=== PATIENT | female | born 1955 | race Caucasian/White ===

== ENCOUNTER 2019-06-29 09:38 | Outpatient (CLI) | payer MEDICARE, MEDICAID, SELFPAY ==
--- NOTE | 2019-06-29 09:46 | CT_ITS ---
WS: [id number] CT CERVICAL SPINE TECHNIQUE: Noncontrast CT of the cervical spine with coronal and sagittal reformatted images. CLINICAL INFORMATION: PSEUDARTHROSIS FOLLOWING SPINAL FUSION COMPARISON: [id number] DLP: 1228.[address] scans at [facility] use at least one of these dose optimization techniques: automat ed exposure control; mA and/or kV adjustment per patient size (includes targeted exams where dose is matched to clinical indication); or iterative reconstruction. FINDINGS: Straightening of the normal cervical lordosis. Prior postoperative changes anterior cervical fusion w ith interbody fusion C4-T1. Mild subsidence at the C4-C5 C5-C6 and C7-T1 fusion grafts. No evidence o f bony bridging beyond the confines of the grafts. Solid appearing interbody graft C6-7. Fusion is unchanged in appearance since December 18, 2018. Screw fragment C5 vertebral body. Slight lucency along the C6 anterior fixation screws. Otherwise no eviden ce of loosening. C2-C3: Disc osteophyte complex. Mild central canal stenosis. Mild bilateral bony foraminal narrowing. C3-C4: Slight retrolisthesis. Disc osteophyte complex with endplate ridging. Mild central canal steno sis. Moderate bilateral bony foraminal narrowing with mild facet arthropathy. C4-C5: Anterior interbody cervical fusion. Moderate bilateral bony foraminal narrowing. Moderate left facet arthropathy. C5-C6: Disc osteophyte complex with mild central canal stenosis. Tiny central protrusion. Moderate ri ght and mild left bony foraminal narrowing. Moderate facet arthropathy. C6-C7: Disc osteophyte complex with endplate ridging. Mild central canal stenosis. Moderate to severe right and mild left bony foraminal narrowing. Mild facet arthropathy. C7-T1: Disc osteophyte complex with mild central canal stenosis. Moderate to severe bilateral bony fo raminal narrowing worse in the left. Visualized posterior nasopharynx: Normal. Prevertebral soft tissues: Normal. CT/CT cervical spin wo con* [id number] IMPRESSION: 1. Prior postoperative changes anterior interbody cervical fusion C4-T1. Hardw are appears unchanged since 2018. 2. Solid appearing interbody fusion at C6-C7. Incomplete interbody fusion C4-C 5 C5-C6 and C7-T1 with subsidence is unchanged in appearance. 3. Abandoned screw fragment C5 vertebral body. 4. Disc osteophyte complexes worse at C2-C3 and C3-C4 with mild central canal stenosis. 5. Multilevel bony foraminal narrowing worse at left C4-C5, right C6-7, and bi lateral C7-T1.
== END 2019-06-29 09:39 | disposition home or self-care (01) ==
LOC: RADWPI 09:45
PROVIDERS: Family Provider Family Medicine; PCP Family Medicine; Visit Provider Specialist
DX: M96.0 Pseudarthrosis after fusion or arthrodesis (principal); Z98.1 Arthrodesis status; M48.03 Spinal stenosis, cervicothoracic region
CPT/HCPCS: 72125

== ENCOUNTER → 2023-09-12 15:43 | Outpatient (BNVA) | payer MEDICARE, MEDICAID, SELFPAY | PROVIDERS: Family Provider Family Medicine; PCP Family Medicine; Visit Provider Podiatrist Foot & Ankle Surgery | DX: M21.70 Unequal limb length (acquired), unspecified site; M19.071 Primary osteoarthritis, right ankle and foot; M19.072 Primary osteoarthritis, left ankle and foot; M20.12 Hallux valgus (acquired), left foot; M20.42 Other hammer toe(s) (acquired), left foot; G62.9 Polyneuropathy, unspecified | CPT/HCPCS: 73630; 77073; 99204 ==

== ENCOUNTER → 2023-12-12 11:01 | Outpatient (BNVA) | payer MEDICARE, MEDICAID, SELFPAY | PROVIDERS: Family Provider Family Medicine; PCP Family Medicine; Visit Provider Podiatrist Foot & Ankle Surgery | DX: G62.9 Polyneuropathy, unspecified (principal); M21.70 Unequal limb length (acquired), unspecified site; M20.42 Other hammer toe(s) (acquired), left foot; M19.072 Primary osteoarthritis, left ankle and foot; M20.12 Hallux valgus (acquired), left foot | CPT/HCPCS: 99213 ==

== ENCOUNTER 2024-05-26 11:41 | Emergency (ER) | payer MEDICARE, MEDICAID, SELFPAY ==
[2024-05-26] VITALS (9 sets, daily range): BP systolic 146–183; BP diastolic 60–116; PULSE 62–81; RESP 16; TEMP 36.6; O2SAT 90–100; BMI 23.9
--- NOTE | 2024-05-26 13:34 | CTR_ITS ---
PROCEDURE INFORMATION: Exam: CT Head Without Contrast Exam date and time: 05/26/2024 1:48 PM Age: 69 years old Clinical indication: Injury or trauma; Fall; Blunt trauma (contusions or hematomas); Without loss of consciousness; Additional info: Fall, pain, numbness, weakness TECHNIQUE: Imaging protocol: Computed tomography of the head without contrast. Radiation optimization: All CT scans at this facility use at least one of these dose optimization techniques: automated exposure control; mA and/or kV adjustment per patient size (includes targeted exams where dose is matched to clinical indication); or iterative reconstruction. COMPARISON: CT cervical spin wo con* [id number] 05/26/2024 1:48 PM RADIATION DOSE METRICS: Total DLP (mGy-cm): 1098.9 FINDINGS: Brain: No acute infarct, hemorrhage, mass, or mass effect. Mild chronic white matter microvascular ischemic change. Cerebral ventricles: Normal ventricles. No appreciable extra-axial fluid. Paranasal sinuses: Mucosal thickening in the paranasal sinuses. Mastoid air cells: Clear. Orbital cavities: Orbits are unremarkable. Sella is unremarkable. Bones: Unremarkable. Soft tissues: Unremarkable. CT/CT head wo con* [id number] IMPRESSION: No acute intracranial abnormality.
--- NOTE | 2024-05-26 13:34 | CTR_ITS ---
PROCEDURE INFORMATION: Exam: CT Cervical Spine Without Contrast Exam date and time: 05/26/2024 1:48 PM Age: 69 years old Clinical indication: Neck pain; Additional info: Pain, numbness, weakness TECHNIQUE: Imaging protocol: Computed tomography of the cervical spine without contrast. Radiation optimization: All CT scans at this facility use at least one of these dose optimization techniques: automated exposure control; mA and/or kV adjustment per patient size (includes targeted exams where dose is matched to clinical indication); or iterative reconstruction. COMPARISON: CT cervical spin wo con* [id number] 06/29/2019 9:55 AM RADIATION DOSE METRICS: Total DLP (mGy-cm): 1054.9 FINDINGS: Bones: Mild straightening of cervical lordosis may be due to pain or positioning. No acute fracture. Moderate multilevel degenerative change, with associated grade 1 retrolisthesis at C2-C3. Cervical ACDF spanning C3 -7. New/more prominent fracture of the right C7 vertebral body screw. Lungs: Lung apices are normal. Soft tissues: No soft tissue abnormality. CT/CT cervical spin wo con* [id number] IMPRESSION: 1. Mild straightening of cervical lordosis may be due to pain or positioning. No acute fracture. 2. Cervical ACDF spanning C3 -7. New/more prominent fracture of the right C7 vertebral body screw. Otherwise, no evidence of hardware loosening or fracture.
--- NOTE | 2024-05-26 13:35 | XRR_ITS ---
PROCEDURE INFORMATION: Exam: XR Right Hip Exam date and time: 05/26/2024 1:37 PM Age: 69 years old Clinical indication: Hip pain; Right hip; Patient HX: RT hip/knee pain post fall TECHNIQUE: Imaging protocol: Radiologic exam of the right hip. Views: 1 view hip with pelvis when performed. COMPARISON: No relevant prior studies available. FINDINGS: Bones/joints: Mild osteoarthritis of the right hip without evidence of fracture or subluxation. Pelvic ring is grossly intact. Sacrum and coccyx are partially obscured by bowel gas/stool. Severe spondylosis of the lumbar spine with dextroscoliosis. Moderate-large stool burden. Soft tissues: No gross soft tissue abnormality. XR/XR hip RT 2-3V wo/w pel* [id number] IMPRESSION: 1. No evidence of fracture or subluxation of the right hip.
--- NOTE | 2024-05-26 13:36 | XRR_ITS ---
PROCEDURE INFORMATION: Exam: XR Right Knee Exam date and time: 05/26/2024 1:37 PM Age: 69 years old Clinical indication: Pain; Hip and knee; Right; Additional info: RT knee/hip pain post fall TECHNIQUE: Imaging protocol: Radiologic exam of the right knee. Views: 3 views. COMPARISON: No relevant prior studies available. FINDINGS: Bones/joints: Mild tricompartmental osteoarthritis with small marginal osteophytes. No evidence of acute fracture or subluxation. No evidence of joint effusion. Soft tissues: No gross soft tissue abnormality. XR/XR knee RT 3V* [id number] IMPRESSION: 1. No evidence of acute fracture or subluxation.
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
[2024-05-26] MEDS: ketorolac 10 mg Tablet PO (16:15)
== END 2024-05-26 16:37 | disposition home or self-care (01) ==
PROVIDERS: Emergency Provider Nurse Practitioner; Family Provider Family Medicine; PCP Family Medicine
DX: M43.12 Spondylolisthesis, cervical region (principal); Z98.1 Arthrodesis status; R53.1 Weakness; M62.50 Muscle wasting and atrophy, not elsewhere classified, unspecified site; M48.02 Spinal stenosis, cervical region
CPT/HCPCS: 70450; 72125; 73502; 73562; 99284

== ENCOUNTER → 2024-06-12 14:23 | Outpatient (BNVA) | payer MEDICARE, MEDICAID, SELFPAY | PROVIDERS: Family Provider Family Medicine; PCP Family Medicine; Visit Provider Orthopaedic Surgery | DX: M54.2 Cervicalgia (principal) | CPT/HCPCS: 72050; 99204 ==

== ENCOUNTER 2024-06-18 10:33 | Outpatient (CLI) | payer MEDICARE, MEDICAID, SELFPAY ==
--- NOTE | 2024-06-18 11:00 | MR_ITS ---
WS: [id number] MRI CERVICAL SPINE NONCONTRAST TECHNIQUE: Sagittal T1, T2 and STIR imaging. Axial T2, gradient, and fiesta imaging. CLINICAL INFORMATION: Cervical pain radiating to both arms and shoulders COMPARISON: CT cervical 05/26/2024 MRI 2018 FINDINGS: Straightening of the normal cervical lordosis. Slight retrolisthesis C3 on C4. Postoperative changes ACDF C4-T1. Disc bulging at C2-C3 and C3-C4 has progressed since 2018. Severe central canal stenosis at C2-3 has progressed with myelomalacia in the cervical cord at this level. Impingement on the RIGHT ventral cervical cord. Edema within the RIGHT C2-3 facets compatible with synovitis. Associated periarticular edema. C2-C3: Severe central canal stenosis with RIGHT paracentral protrusion. Indentation and flattening of the cervical cord. Myelomalacia in the cervical cord at this level with severe central canal stenosi s. RIGHT facet synovitis. Severe RIGHT and mild LEFT bony foraminal narrowing. Advanced RIGHT facet a rthropathy. C3-C4: Disc osteophyte complex with mild central canal stenosis. Indentation on the ventral cervical cord. Moderate LEFT greater than RIGHT bony foraminal narrowing. Moderate facet arthropathy. Slight r etrolisthesis. C4-C5: Prior postoperative changes. Moderate LEFT facet arthropathy. Mild to moderate bilateral bony foraminal narrowing. C5-C6: Postoperative changes. Mild to moderate RIGHT greater than LEFT bony foraminal narrowing. Mild facet arthropathy. C6-C7: Postoperative changes ACDF. Moderate to severe RIGHT greater than LEFT bony foraminal narrowin g. Mild facet arthropathy. C7-T1: Postoperative changes. Moderate to severe bilateral bony foraminal narrowing LEFT greater than RIGHT. T1-T2: Mild disc bulging. Moderate bilateral bony foraminal narrowing LEFT greater than RIGHT. Visualized brain stem structures: Normal. Prevertebral soft tissues: Normal. MR/MR cervical spin wo con* [id number] IMPRESSION: 1. Severe central canal stenosis C2-3 has progressed since the prior MRI with myelomalacia in the cervical cord. Impingement and flattening of the RIGHT vent ral cervical cord. 2. RIGHT C2-3 facet synovitis with severe RIGHT foraminal narrowing. 3. Prior postoperative changes C4-C7 ACDF. 4. Multilevel bony foraminal narrowing described above.
== END 2024-06-18 10:34 | disposition home or self-care (01) ==
PROVIDERS: Family Provider Family Medicine; PCP Nurse Practitioner Family; Visit Provider Orthopaedic Surgery
DX: M48.02 Spinal stenosis, cervical region (principal); G95.89 Other specified diseases of spinal cord; R93.7 Abnormal findings on diagnostic imaging of other parts of musculoskeletal system; M65.88 Other synovitis and tenosynovitis, other site; Z98.890 Other specified postprocedural states; M50.31 Other cervical disc degeneration, high cervical region; M50.21 Other cervical disc displacement, high cervical region; M47.892 Other spondylosis, cervical region; M25.78 Osteophyte, vertebrae; M51.34 Other intervertebral disc degeneration, thoracic region; M48.04 Spinal stenosis, thoracic region
CPT/HCPCS: 72141

== ENCOUNTER → 2024-06-21 10:24 | Outpatient (BNVA) | payer MEDICARE, MEDICAID, SELFPAY | PROVIDERS: Family Provider Family Medicine; PCP Nurse Practitioner Family; Visit Provider Orthopaedic Surgery | DX: M47.12 Other spondylosis with myelopathy, cervical region (principal) | CPT/HCPCS: 36415; 80053; 81001; 85025; 99214 ==

== ENCOUNTER 2024-06-25 08:02 | Inpatient (IN) | payer MEDICARE, MEDICAID, SELFPAY ==
[2024-06-25] VITALS (10 sets, daily range): BP systolic 107–171; BP diastolic 49–100; PULSE 59–73; RESP 17–18; TEMP 36.4–36.6; O2SAT 97–100; BMI 23.9; BMI 22.1
--- NOTE | 2024-06-25 08:32 | CT_ITS ---
WS: [id number] CT HEAD TECHNIQUE: Noncontrast CT of the head obtained from the skullbase to the vertex. CLINICAL INFORMATION: Trauma COMPARISON: CT 05/26/2024 DLP: 1017.[address] scans at [facility] use at least one of these dose optimization techniques: automated exposure control; mA and/or kV adjustment per patient size (includes targeted exams where dose is matched to clinical indication); or iterative reconstruction. FINDINGS: No evidence of intracranial hemorrhage or mass effect. Ventricular system and basal cisterns are patent. Mild small vessel changes with minimal parenchymal volume loss. No extra-axial fluid collections. No evidence of mass or mass effect. Vascular calcification. 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 Paranasal sinuses and mastoid air cells are well aerated. .Normal visualized soft tissues. CT/CT head wo con* [id number] IMPRESSION: 1. No evidence of intracranial hemorrhage or mass effect. 2. No acute intracranial findings.
--- NOTE | 2024-06-25 08:32 | CT_ITS ---
WS: [id number] CT CERVICAL TRAUMA TECHNIQUE: Noncontrast CT of the cervical spine with coronal and sagittal reformatted images. CLINICAL INFORMATION: Trauma COMPARISON: Recent MRI 06/18/[address] 05/26/2024 DLP: 152.[address] scans at [facility] use at least one of these dose optimization techniques: automated exposure control; mA and/or kV adjustment per patient size (includes targeted exams where dose is matched to clinical indication); or iterative reconstruction. FINDINGS: Straightening of the normal cervical lordosis. Slight anterolisthesis C2 on C3. Slight retrolisthesis C3 on C4. Prior postoperative changes ACDF C4-T1. Severe central canal stenosis C2-3 with disc osteophyte protrusion. This is similar to the recent MRI and appears slightly progressed compared to the prior CT 05/26/2024. Central canal measures 4.3 mm in minimum dimension at this level Moderate central canal stenosis C3-C4. Multilevel moderate to severe bony foraminal narrowing No acute fractures visualized Normal prevertebral soft tissues. Mastoids air cells are well aerated. CT/CT cervical spin wo con* [id number] IMPRESSION: 1. Severe central canal stenosis C2-3 with central disc osteophyte protrusion similar to the recent MRI and slightly progressed since the prior CT 05/26/2024. Cervical cord could be further evaluated with MRI. Recommend spine surgery con sultation. 2. Fracture of the RIGHT T1 fixation screw unchanged since the prior studies Notified Bryn Morrow DO at 06/25/2024 9:43 AM.
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
[2024-06-25 08:59] LABS: Bilirubin Urine Negative (Negative); Blood Urine Negative (Negative); Glucose Urine UA Negative (Normal); Ketones Urine Trace (Negative); Leukocyte Esterase Urine 2+ (Negative); Nitrate Urine Negative (Negative); Protein Urine Trace (Negative); Specific Gravity, Urine 1.021 (1.005-1.030); Urine Appearance Clear (CLEAR); Urine Color Yellow (Yellow); pH Urine 6.5 (5-7)
[2024-06-25 08:59] LABS: Basophils % 0.1 %; Eosinophils % 0.2 %; Lymphocytes # 1.5 10^3/uL (0.8-4.8); Lymphocytes % 15.2 %; Mean Corpuscular HGB Conc 33.2 g/dL (30-55); Mean Corpuscular Hemoglobin 32.6 pg (27-33); Mean Corpuscular Volume 98.1 fl (85-98); Mean Platelet Volume 9.2 fL (7.4-10.4); Monocytes # 0.8 10^3/uL (0.2-0.9); Monocytes % 8.2 %; Neutrophils # 7.51 10^3/uL (1.8-7.7); Neutrophils % 75.9 %; Nucleated Red Blood Cells % 0 %; Platelet Count 294 10^3/cmm (157-399); Red Blood Count 3.77 10^6/uL (3.85-5.65); Red Cell Distribution Width 12.1 % (12.1-15.1); White Blood Count 9.89 10^3/uL (3.29-11.43)
[2024-06-25 09:04] LABS: Add Urine Microscopic? YES; Bacteria Urine None Seen /hpf; Hyaline Casts Urine 1.65 /lpf; RBC Urine 0-2 /hpf (0-2); Squamous Epithelial Cell Urine 0-5 /hpf (0-5)
[2024-06-25 09:20] LABS: Alanine Aminotransferase 33 U/L (0-33); Albumin Level 4.7 g/dL (3.5-5.2); Alkaline Phosphatase 94 U/L (35-105); Anion Gap 16.3 (5-19); Aspartate Amino Transferase 57 U/L (0-32); Blood Urea Nitrogen 16 mg/dL (8-23); Calcium 10.3 mg/dL (8.5-10.5); Carbon Dioxide 28 mmol/L (22-29); Chloride 97 mmol/L (98-107); Creatinine Clr Calc Pharmacy 60.2553; Globulin 2.7 g/dL (1.3-4.6); Glomerular Filtration Rate 123.1 mL/min (90-130); Glucose 111 mg/dL (65-115); Osmolality Calculated 288 mOsm/kg (285-295); Potassium 3.3 mmol/L (3.5-5.1); Sodium 138 mmol/L (136-145); Total Bilirubin 0.5 mg/dL (0.15-1.2); Total Protein 7.4 g/dL (6.6-8.7)
[2024-06-25] MEDS: HYDROcodone-acetaminophen 5-325 mg Tablet 1 TAB PO ×4 (09:44→23:22)
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
[2024-06-25] MEDS: lacosamide 50 mg Tablet 150 MG PO ×2 (11:02→18:09)
[2024-06-25] MEDS: levETIRAcetam 500 mg Tablet 2000 MG PO ×2 (11:03→18:09)
[2024-06-25] MEDS: atenolol 50 mg Tablet PO (11:03)
--- NOTE | 2024-06-25 11:24 | ECG_ITS ---
[facility] Test Date: 2024-06-25 Pat Name: Marisa Car Department: Room: EDIP Gender: Female Sensor Technician: : [id number] Requested By: Lorenzo Subramanian Order Number: [id number] Reading MD: Bandar Pastor M.D. Measurements Intervals [place] Rate: 60 P: 48 ID: [id number] QRS: 69 QRSD: 97 T: 4 QT: 359 QTc: 360 Interpretive Statements SINUS RHYTHM MODERATE T-WAVE ABNORMALITY, CONSIDER INFERIOR ISCHEMIA [-0.1+ mV T-WAVE IN II/aVF] No previous ECG available for comparison Electronically Signed On 06-27-2024 17:59:21 TREE PULLER by Bandar Pastor M.D. [email or web address]
[2024-06-25] MEDS: enoxaparin 40 mg/0.4 mL Syringe SUBCUT (11:33)
[2024-06-25] MEDS: potassium chloride ER 20 mEq Tablet PO (11:33)
--- NOTE | 2024-06-25 17:26 | PM.CONSULT ---
Providers/Reason For Consult Consulting Physician/Specialty*: Hospitalist Reason for Consult*: Cervical stenosis with myelopathy and radiculopathy Attending Physician: Lorenzo Subramanian Primary Care Provider: AYSHA Haley History of Present Illness History of Present Illness Marisa Car is a 69 year old female had a fall this morning and hit her head. Patient at this point has surgery planned for the following week however with the progression of her symptoms my plan is to do a more urgently and do the case this Tuesday Review of Systems Const: Denies: fever(s), chills, body aches or malaise ENMT: Denies: throat pain Card: Denies: chest pain, edema, pre-syncope or dyspnea on exertion Resp: Denies: dyspnea, productive cough, change in phlegm color or hemoptysis GI: Denies: abdominal pain, nausea, vomiting, diarrhea, constipation, hematochezia or melena : Denies: flank pain, urinary frequency or hematuria Musc: Reports: neck pain and extremity pain; Denies: back pain, joint swelling or joint redness Skin/Breast: Denies: rash or new lesions Neuro: Denies: headache(s) or confusion Medications/Allergies Home Medications ?Medication ?Instructions ?Recorded ?Confirmed ?Last Taken ?Type atenolol 50 mg tablet 50 mg PO DAILY 09/12/23 06/25/24 05/26/24 History hydrochlorothiazide 25 mg tablet 25 mg PO DAILY 09/12/23 06/25/24 05/25/24 History Custom accommodative insoles with #1 ea 09/20/23 06/25/24 Unknown Rx 3/4 inch lift to left sole supports #1 ea 12/12/23 06/25/24 Unknown Rx acetaminophen 325 mg tablet 325 mg PO QID PRN Pain 05/26/24 06/25/24 05/25/24 History (Tylenol) lacosamide 150 mg tablet 150 mg PO BID 05/26/24 06/25/24 05/26/24 11:00 History levetiracetam 1,000 mg tablet 2,000 mg PO BID 05/26/24 06/25/24 05/26/24 11:00 History nabumetone 500 mg tablet 500 mg PO BID 05/26/24 06/25/24 05/26/24 11:00 History methocarbamol 500 mg tablet 1,000 mg PO TID 06/12/24 06/25/24 Unknown History Allergies Allergy/AdvReac Type Severity Reaction Status Date / Time fluoxetine (From Prozac) Allergy ALGY-Rash Verified 06/21/24 10:38 lamotrigine (From Lamictal) Allergy Unkown Verified 06/21/24 10:38 pollen extracts Allergy Unknown Verified 06/21/24 10:38 Current Medications Generic Name Dose Route Start Last Admin Trade Name Freq PRN Reason Stop Dose Admin Hydrocodone Bitart/Acetaminophen 1 tab 06/25/24 10:55 06/25/24 14:54 Hydrocodone-Acetaminophen 5-325 Mg Tablet PO 1 tab Q4H PRN Administration MODERATE PAIN Atenolol 50 mg 06/25/24 11:00 06/25/24 11:03 Atenolol 50 Mg Tablet PO 50 mg DAILY PORFIRIO Administration Enoxaparin Sodium 40 mg 06/25/24 11:24 06/25/24 11:33 Enoxaparin 40 Mg/0.4 Ml Syringe SUBCUT 40 mg Q24H PORFIRIO Administration Lacosamide 150 mg 06/25/24 11:00 06/25/24 11:02 Lacosamide 50 Mg Tablet PO 150 mg BID PORFIRIO Administration Levetiracetam 2,000 mg 06/25/24 10:45 06/25/24 11:03 Levetiracetam 500 Mg Tablet PO 2,000 mg BID PORFIRIO Administration PFSH Acute PFSH: Medical History Peripheral neuropathy Cervical spondylosis with myelopathy Family History Father Cancer Grandfather Cancer Grandmother Stroke Family/Other Brain cancer Social History Smoking and tobacco/nicotine status: never used tobacco/nicotine Alcohol intake: never Lives independently: Yes Household members: spouse Marital status: Current occupational status: disabled Vitals/I&O/Wt Last Vital Signs Temp 97.7 F 06/25/24 16:00 Pulse 70 06/25/24 16:00 Resp 17 06/25/24 16:00 BP 127/61 06/25/24 16:00 Pulse Ox 98 06/25/24 16:00 O2 Del Method Room Air 06/25/24 16:00 Weight last 48 hrs Weight 125 lb 3.2 oz Weight 135 lb Physical Exam Narrative: chronic contracture right upper and lower extremity, normally using a cane to ambulate, additionally with severe cervical spinal spondylosis with myelopathy, Alert and oriented x 3 Head is normocephalic atraumatic Respirations are intact Patient is currently in bed eating dinner. Data 06/25/24 08:43 06/25/24 08:43 A&P Assessment and plan (1) Cervical spondylosis with myelopathy: With patient's new symptoms and plan is to do this case more urgently will plan to do on Tuesday this week. On 06/27/2024. plan will be to do a posterior cervical fusion C2-C5 with decompression from C2 down to C4 I had an open and honest discussion with the patient about the risks, benefits and alternatives to both surgical and nonsurgical treatment. The patient verbalized understanding of the inherent unpredictability associated with surgery. Risk of surgery were discussed including, but not limited to, infection, bleeding, temporary and permanent nerve damage, continued pain, stiffness, incomplete healing, need for revision surgery, blood clot and other complications. The patient verbalized understanding that there is spine is elective in nature and if they find any of these risks to be unacceptable then they should choose not to have the surgery. The patient verbalized understanding of these risks and elected to proceed with the surgery.. PDMP PDMP Reviewed: Not Reviewed Coding Level of Care Code Acute Code for g Fwd Diagnoses Cervical spondylosis with myelopathy M47.12
[2024-06-25] MEDS: methocarbamol 500 mg Tablet 1000 MG PO (20:51)
[2024-06-26] VITALS (7 sets, daily range): BP systolic 95–125; BP diastolic 53–67; PULSE 64–78; RESP 15–18; TEMP 36.4–37; O2SAT 95–99
[2024-06-26] MEDS: HYDROcodone-acetaminophen 5-325 mg Tablet 1 TAB PO ×5 (04:01→21:42)
[2024-06-26 06:19] LABS: Basophils % 0.2 %; Eosinophils # 0.1 10^3/uL (0.0-0.8); Eosinophils % 1.2 %; Hematocrit 33.4 % (36-47); Lymphocytes # 1.8 10^3/uL (0.8-4.8); Lymphocytes % 27.2 %; Mean Corpuscular HGB Conc 32.9 g/dL (30-55); Mean Corpuscular Hemoglobin 32.5 pg (27-33); Mean Corpuscular Volume 98.8 fl (85-98); Mean Platelet Volume 9.3 fL (7.4-10.4); Monocytes # 0.6 10^3/uL (0.2-0.9); Monocytes % 9.5 %; Neutrophils # 4.01 10^3/uL (1.8-7.7); Neutrophils % 61.6 %; Nucleated Red Blood Cells % 0 %; Platelet Count 253 10^3/cmm (157-399); Red Blood Count 3.38 10^6/uL (3.85-5.65); Red Cell Distribution Width 12.3 % (12.1-15.1); White Blood Count 6.51 10^3/uL (3.29-11.43)
[2024-06-26 06:44] LABS: Alanine Aminotransferase 29 U/L (0-33); Albumin Level 3.8 g/dL (3.5-5.2); Alkaline Phosphatase 70 U/L (35-105); Anion Gap 15.9 (5-19); Aspartate Amino Transferase 55 U/L (0-32); Blood Urea Nitrogen 11 mg/dL (8-23); Calcium 9.4 mg/dL (8.5-10.5); Carbon Dioxide 25 mmol/L (22-29); Chloride 101 mmol/L (98-107); Creatinine Clr Calc Pharmacy 58.2227; Globulin 2.1 g/dL (1.3-4.6); Glomerular Filtration Rate 159.2 mL/min (90-130); Glucose 112 mg/dL (65-115); Magnesium 2.1 mg/dL (1.7-2.3); Osmolality Calculated 286 mOsm/kg (285-295); Potassium 3.9 mmol/L (3.5-5.1); Sodium 138 mmol/L (136-145); Total Bilirubin 0.4 mg/dL (0.15-1.2); Total Protein 5.9 g/dL (6.6-8.7)
[2024-06-26] MEDS: methocarbamol 500 mg Tablet 1000 MG PO ×3 (08:55→20:31)
[2024-06-26] MEDS: atenolol 50 mg Tablet PO (08:55)
[2024-06-26] MEDS: cefTRIAXone 1,000 mg SDV 1000 MG IVP (08:56)
[2024-06-26] MEDS: levETIRAcetam 500 mg Tablet 2000 MG PO ×2 (08:56→17:26)
[2024-06-26] MEDS: lacosamide 50 mg Tablet 150 MG PO ×2 (08:56→17:26)
--- NOTE | 2024-06-26 09:54 | PC.CHAP ---
Pastoral Care Encounter/Spiritual Assessment Type of Contact [x] Declined blind aide visit [] Patient/Family/Request visit [] Outpatient visit [] Follow-up visit [] Physician referral [] Code/Alert [] Routine visit [] Staff referral [] Actively dying [] Patient sleeping [] Family support [] [] Out of room [] Palliative care [] [] Receiving care in room [] Pre-surgical visit [] Trauma [] Long length of stay [] ICU visit [] Other: Relational/Emotional Strength [] Patient feels connected with others/family/visitors/staff [] Distress [] Loneliness/isolation [] Abandonment Spirituality of Patient [] Person of Estefani [] Attends Hinduism of their Estefani [] Believes in Prayer [] Reads Bible or Methodist materials [] There are Spiritual issues to be addressed Regional Sales Director Interventions [] Prayer [] Active listening [] Non-anxious presence [] Spiritual/emotional support [] Crisis/trauma care [] Spiritual counseling [] Bereavement support [] Provided bereavement packet [] Provided Bible/devotional materials [] Provided toy/stuffed animal, coloring book to patient or family member [] Provided Communion [] Anointing/[place] [] Salvation [] Completed spiritual assessment [] Other: Impact on Illness or Injury [] Angry [] Fearful [] Anxious [] Often cries [] Exhaustion [] Unable to work [] Unable to attend jew [] Unable to walk/stand [] Unable to read [] Unable to drive [] Unable to eat/drink [] Unable to sleep [] Unable to be with family [] Patient intubated [] Other: Summary Time spent with patient
[2024-06-26] MEDS: enoxaparin 40 mg/0.4 mL Syringe SUBCUT (10:50)
--- NOTE | 2024-06-26 11:51 | PM.PN ---
Subjective Subjective: She reports similar symptoms today. Still difficulties with dry house attendant in both hands, worse on the right. Vitals/I&O/Wt Last Vital Signs Temp 98.0 F 06/26/24 07:56 Pulse 74 06/26/24 07:56 Resp 16 06/26/24 07:56 BP 122/67 06/26/24 07:56 Pulse Ox 97 06/26/24 07:56 O2 Del Method Room Air 06/26/24 07:56 06/25/24 06/26/24 06/26/24 22:59 06:59 14:59 Intake Total 360 / 360 180 / 540 240 / 240 Output Total 300 / 300 Balance 360 / 360 -120 / 240 240 / 240 Weight last 48 hrs Weight 56.518 kg Weight 56.79 kg Weight 61.235 kg Physical Exam Narrative: She is holding her neck and antalgic positioning. Const: COMMON NORMALS: patient oriented x3 and alert GENERAL APPEARANCE: cooperative ORIENTATION/CONSCIOUSNESS: Yes awake HENMT: COMMON NORMALS: oropharynx normal Neck/C-Spine: COMMON NORMALS: no JVD Resp: COMMON NORMALS: normal respiratory effort and clear to auscultation bilaterally AUSCULTATION: clear to auscultation bilaterally Cardio: COMMON NORMALS: no JVD, regular rhythm, S1 normal heart sound present, S2 normal heart sound present and No murmurs present (Cardio) RHYTHM: regular rhythm HEART SOUNDS: S1 normal heart sound present and S2 normal heart sound present GI: COMMON NORMALS: Normal to inspection, nondistended, normoactive bowel sounds present, Soft to palpation and non-tender PALPATION: Yes Soft to palpation Extremity: COMMON NORMALS: no joint enlargement and no pedal edema OTHER: Chronic contractures right upper and lower extremity. Diminished sensation right upper extremity, bilateral hands, forearms, right lower extremity and distal bilateral lower extremities. Neuro: COMMON NORMALS: patient oriented x3 SENSORIUM/ORIENTATION: Yes alert Skin: COMMON NORMALS: no rashes or lesions noted GENERAL SKIN EXAM: no rashes or lesions noted Urinary Catheter Management: Ramirez: Cath Placed During This Visit: yes Reason for Continuing Indwelling Catheter: Other Urinary Catheter Date of Insertion: 06/26/24 Urinary Catheter Time of Insertion: 02:41 Data 06/26/24 06:01 06/26/24 06:01 Micro: Microbiology 06/25/24 08:49 Urine Culture - Preliminary Urine,Clean Catch A&P Assessment and plan (1) Fall: She has discussed with orthospine specialist and they are tentatively planning for surgical transfer for likely tomorrow, although she does not know the time yet. Reviewed vitals, CBC, CMP. EKG. Some possible T abnormality in 2 and aVF, but very triggered baseline, does appear to have T waves, perhaps some flattening in aVF. Difficult to see. Will request repeat EKG. Methocarbamol resumed. Discussed with nursing, machine adjuster leader case trim. Fall at home, lost her footing due to pain in her right lower extremity falling backwards and hitting the back of her neck on the drawer. Subsequently with pain and her neck, arms, weakened dry house attendant left upper extremity. She has history of cervical spondylosis with myelopathy, CT in ER with severe central, stenosis A2-3, with central disc osteophyte protrusion similar to recent MRI and slightly progressed to prior CT 05/26/2024. With severity of central cord stenosis, concern for possibility of cord contusion. Case was discussed with orthospine surgery, consideration given to further options including additional imaging with MRI. Pending orthospine consultation. Consideration of advancement of her surgery date. Discussed with her. Appears to have some degree of urinary tract infection as well, possibly contributed to the fall, discussed with her stopping ceftriaxone. She otherwise denies any history very of heart disease or stroke. Will obtain baseline EKG. She has not had any chest pain or pressure. Denies any history of asthma, COPD or other lung condition. No history of sleep apnea. Has not been short of breath. She otherwise is usually active with a cane, but has been unable to hold onto it due to weakened dry house attendant. Pain control with acetaminophen, hydrocodone as needed. IV morphine for severe breakthrough pain. (2) Cervical spondylosis with myelopathy: Pending surgery, tentatively planned for tomorrow. Reviewed orthopedic note. Discussed with machine adjuster leader case trim. Severe disease with worsening of symptoms after fall this morning, with previously already planned cervical spine surgery. (3) UTI (urinary tract infection): Continue ceftriaxone, reviewed urine culture, pending so far. Reviewed CBC. 11-20 WBC in urine. She otherwise afebrile, without leukocytosis. Has had some feeling like she needs to void recently but did not when she tried to. Discussed with her we will treat possible urinary tract infection. Follow-up urine culture. Requested. Plan Epilepsy: Continue antiepileptics Hypertension: Continue atenolol. Monitor blood pressures. Hold HCTZ for now. Hypokalemia: Mild hypokalemia, potassium 3.3. Replace. Check magnesium. Goals of care: In case of cardiopulmonary arrest she would want attempted resuscitation. In case she could not make decisions for herself, she will let us know who she might consider to make decisions on her behalf, she does not have a person in mind currently, but as per discussion will think about it and contact the person to let them and us know. PDMP PDMP Reviewed: Not Reviewed Attestations Medical Necessity Statement*: Continue admission for assessment management of severe cervical spondylosis with myelopathy, fall, additional injury, possible spinal cord contusion, anticipated possible advancement of surgical repair, treatment of urinary tract infection in a lady with underlying epilepsy, HTN, other comorbidities. and High MDM includes amount and/or complexity of data reviewed/ordered [ previous or external records, resulted lab(s)/test(s), ordered lab(s)/test(s) and other healthcare professional discussion] and described risk of complication, morbidity or mortality of management as documented Diagnoses Fall W19.XXXA Cervical spondylosis with myelopathy M47.12 UTI (urinary tract infection) N39.0
[2024-06-27] VITALS (27 sets, daily range): BP systolic 108–145; BP diastolic 59–80; PULSE 61–92; RESP 14–18; TEMP 36.2–36.7; O2SAT 94–100
[2024-06-27] MEDS: ketorolac 30 mg/mL INJ 15 MG IVP ×2 (01:53→08:28)
[2024-06-27 05:23] LABS: Basophils % 0.2 %; Eosinophils # 0.1 10^3/uL (0.0-0.8); Eosinophils % 0.8 %; Hematocrit 31.4 % (36-47); Lymphocytes # 2.2 10^3/uL (0.8-4.8); Lymphocytes % 34.4 %; Mean Corpuscular HGB Conc 32.8 g/dL (30-55); Mean Corpuscular Hemoglobin 32.5 pg (27-33); Mean Corpuscular Volume 99.1 fl (85-98); Mean Platelet Volume 9.2 fL (7.4-10.4); Monocytes # 0.8 10^3/uL (0.2-0.9); Monocytes % 12.1 %; Neutrophils # 3.33 10^3/uL (1.8-7.7); Neutrophils % 52.2 %; Nucleated Red Blood Cells % 0 %; Platelet Count 241 10^3/cmm (157-399); Red Blood Count 3.17 10^6/uL (3.85-5.65); Red Cell Distribution Width 12.6 % (12.1-15.1); White Blood Count 6.37 10^3/uL (3.29-11.43)
[2024-06-27 05:56] LABS: Alanine Aminotransferase 32 U/L (0-33); Albumin Level 3.5 g/dL (3.5-5.2); Alkaline Phosphatase 69 U/L (35-105); Anion Gap 11.8 (5-19); Aspartate Amino Transferase 41 U/L (0-32); Blood Urea Nitrogen 18 mg/dL (8-23); Calcium 9.1 mg/dL (8.5-10.5); Carbon Dioxide 27 mmol/L (22-29); Chloride 103 mmol/L (98-107); Creatinine Clr Calc Pharmacy 58.0663; Globulin 2.2 g/dL (1.3-4.6); Glomerular Filtration Rate 123.1 mL/min (90-130); Glucose 107 mg/dL (65-115); Osmolality Calculated 288 mOsm/kg (285-295); Potassium 3.8 mmol/L (3.5-5.1); Sodium 138 mmol/L (136-145); Total Bilirubin 0.3 mg/dL (0.15-1.2); Total Protein 5.7 g/dL (6.6-8.7)
[2024-06-27] MEDS: cefTRIAXone 1,000 mg SDV 1000 MG IVP (08:26)
[2024-06-27] MEDS: lacosamide 50 mg Tablet 150 MG PO (08:26)
[2024-06-27] MEDS: HYDROcodone-acetaminophen 5-325 mg Tablet 1 TAB PO ×2 (08:27→13:24)
[2024-06-27] MEDS: methocarbamol 500 mg Tablet 1000 MG PO ×2 (08:27→14:38)
[2024-06-27] MEDS: levETIRAcetam 500 mg Tablet 2000 MG PO (08:28)
--- NOTE | 2024-06-27 08:51 | CTR_ITS ---
PROCEDURE INFORMATION: Exam: CT Lumbar Spine Without Contrast Exam date and time: 06/27/2024 11:37 AM Age: 69 years old Clinical indication: -pt fell while at home 06/25/24. PT hit neck on dresser. Since falling PT has bilateral hand numbness and weakness unable to medical device. PT has also had pain and numbness in RT knee. PT states she is unable to stand or walk since fall. ; Additional info: Assess for any cord compression/cauda equina lower in spine TECHNIQUE: Imaging protocol: Computed tomography of the lumbar spine without contrast. Radiation optimization: All CT scans at this facility use at least one of these dose optimization techniques: automated exposure control; mA and/or kV adjustment per patient size (includes targeted exams where dose is matched to clinical indication); or iterative reconstruction. COMPARISON: CR XR hip RT 2-3V wo/w pel* [id number] 05/26/2024 1:37 PM RADIATION DOSE METRICS: Total DLP (mGy-cm): 350 FINDINGS: Bones/joints: Marked dextrocurvature of the lumbar spine with diffuse severe degenerative disc disease, asymmetrically greater the left at L1 through L4 and greater on the right at L4-L5 and L5-S1. No acute fracture evident. Marked degenerative changes of the facet joints throughout the lumbar spine. Severe central stenosis at L3-L4 secondary to scoliosis, degenerative disc disease and posterior element hypertrophy (series 4, image 62). Severe central stenosis at L4-L5 secondary the same factors (series 4, image 71). Severe stenosis at L5-S1 secondary to same factors as well series 4, image 84. Moderate degenerative change of the right and mild degenerative change of the left sacroiliac joints. Adrenal glands: Lobulated low-attenuation thickening adrenal glands and hepatic cysts adenomatous hyperplasia. Minimal bilateral pleural reaction. Mild left basilar scarring. Right lower lobe calcified granuloma. Soft tissues: Unremarkable. CT/CT lumbar spine wo con* [id number] IMPRESSION: 1. No evidence of fracture or dislocation. 2. Severe dextroscoliosis and degenerative change of the lumbar spine. Multilevel marked central canal stenosis from L3-L4 through L5-S1 secondary to degenerative disc and facet disease superimposed on scoliosis. MRI could be performed for more detailed assessment of the soft tissue structures if clinically warranted.
--- NOTE | 2024-06-27 10:02 | PC.NURSE ---
Noted pt had significant weakness to right leg. Notified Dr. Subramanian. CT to lumbar spine ordered.
[2024-06-27 10:52] LABS: Glucose Point of Care 98 mg/dL (70-110)
--- NOTE | 2024-06-27 15:24 | PC.SOCIAL ---
IMM UPDATED IMM dated and initialed, copy given to patient and copy placed in chart
[2024-06-27] MEDS: sodium chloride 0.9% 1,000 ML 30 ML IV (15:52)
--- NOTE | 2024-06-27 16:35 | ANES.PREANE2 ---
Pre-Anesthetic Assessment Height/Weight: Height 5 ft 3 in Weight 123 lb 12.8 oz Temp Pulse Resp BP Pulse Ox O2 Del Method 98.1 F 61 16 128/73 98 Room Air 06/27/24 12:52 06/27/24 12:52 06/27/24 12:52 06/27/24 12:52 06/27/24 12:52 06/27/24 12:52 Preop Diagnosis: Cervical spinal stenosis Operation Date: 06/27/24 15:40 Proposed Procedures p Cervical Posterior Fusion Cervical 2 to Cervical 5 fusion with decompression(Not Applicable) - Geo Watkins, DO Was Beta Sky taken within 24 hours: Yes Was Clonidine taken within 24 hours: N/A Last intake: Intake Last Liquid Date 06/26/24 Last Solid Date 06/26/24 Social No alcohol and No tobacco Exam alert, oriented x 3, clear to auscultation bilaterally and regular rate & rhythm Airway Submandibular: within normal limits Cervical ROM: Other (Limited range of motion secondary to pain) Mallampati: Class III Dentition: full Comments: Comments: Few missing teeth, denies any loose Anesthetic Plan ASA status: 3 Anesthesia: General Other: No prior issues with anesthesia NPO since yesterday History of cervical spinal stenosis. Bilateral upper extremity numbness Hypertension on atenolol and hydrochlorothiazide. Labs reviewed and acceptable for procedure. Hemoglobin 10.3 History of epilepsy on antiepileptics. Last seizure was months ago EKG sinus rhythm with a mild T wave abnormality. No chest pain noted Plan for GETA Medications/Allergies Home Medications ?Medication ?Instructions ?Recorded ?Confirmed ?Last Taken ?Type atenolol 50 mg tablet 50 mg PO DAILY 09/12/23 06/25/24 05/26/24 History hydrochlorothiazide 25 mg tablet 25 mg PO DAILY 09/12/23 06/25/24 05/25/24 History Custom accommodative insoles with #1 ea 09/20/23 06/25/24 Unknown Rx 3/4 inch lift to left sole supports #1 ea 12/12/23 06/25/24 Unknown Rx acetaminophen 325 mg tablet 325 mg PO QID PRN Pain 05/26/24 06/25/24 05/25/24 History (Tylenol) lacosamide 150 mg tablet 150 mg PO BID 05/26/24 06/25/24 05/26/24 11:00 History levetiracetam 1,000 mg tablet 2,000 mg PO BID 05/26/24 06/25/24 05/26/24 11:00 History nabumetone 500 mg tablet 500 mg PO BID 05/26/24 06/25/24 05/26/24 11:00 History methocarbamol 500 mg tablet 1,000 mg PO TID 06/12/24 06/25/24 Unknown History Allergies Allergy/AdvReac Type Severity Reaction Status Date / Time fluoxetine (From Prozac) Allergy ALGY-Rash Verified 06/21/24 10:38 lamotrigine (From Lamictal) Allergy Unkown Verified 06/21/24 10:38 pollen extracts Allergy Unknown Verified 06/21/24 10:38 Current Medications Generic Name Dose Route Start Last Admin Trade Name Freq PRN Reason Stop Dose Admin Hydrocodone Bitart/Acetaminophen 1 tab 06/25/24 10:55 06/27/24 13:24 Hydrocodone-Acetaminophen 5-325 Mg Tablet PO 1 tab Q4H PRN Administration MODERATE PAIN Atenolol 50 mg 06/25/24 11:00 06/27/24 08:42 Atenolol 50 Mg Tablet PO Not Given DAILY PORFIRIO Ceftriaxone Sodium 1,000 mg 06/26/24 09:00 06/27/24 08:26 Ceftriaxone 1,000 Mg Sdv IVP 1,000 mg DAILY PORFIRIO Administration Protocol Enoxaparin Sodium 40 mg 06/25/24 11:24 06/27/24 10:07 Enoxaparin 40 Mg/0.4 Ml Syringe SUBCUT Not Given Q24H PORFIRIO Sodium Chloride 1,000 mls @ 30 mls/hr 06/27/24 15:45 06/27/24 15:52 Sodium Chloride 0.9% IV 06/28/24 15:44 30 mls/hr .Q24H PORFIRIO Administration Ketorolac Tromethamine 15 mg 06/27/24 01:38 06/27/24 08:28 Ketorolac 30 Mg/Ml Inj IVP 07/02/24 01:37 15 mg Q6H PRN Administration MODERATE PAIN Lacosamide 150 mg 06/25/24 11:00 06/27/24 08:26 Lacosamide 50 Mg Tablet PO 150 mg BID PORFIRIO Administration Levetiracetam 2,000 mg 06/25/24 10:45 06/27/24 08:28 Levetiracetam 500 Mg Tablet PO 2,000 mg BID PORFIRIO Administration Methocarbamol 1,000 mg 06/25/24 21:00 06/27/24 14:38 Methocarbamol 500 Mg Tablet PO 1,000 mg TID PORFIRIO Administration PFSH Anesthesia Medical History Peripheral neuropathy Cervical spondylosis with myelopathy Family History Father Cancer Grandfather Cancer Grandmother Stroke Family/Other Brain cancer Social History Smoking and tobacco/nicotine status: never used tobacco/nicotine Alcohol intake: never Lives independently: Yes Household members: spouse Marital status: Current occupational status: disabled Data Anesthesia 06/27/24 05:13 06/27/24 05:13 Short CBC 06/26/24 06/27/24 Range/Units 06:01 05:13 WBC 6.51 6.37 (3.29-11.43) 10^3/uL Hgb 11.00 L 10.30 L (11.27-16.99) g/dL Hct 33.4 L 31.4 L (36-47) % MCV 98.8 H 99.1 H (85-98) fl Plt Count 253 241 (157-399) 10^3/cmm Neut % (Auto) 61.6 52.2 % Neut # (Auto) 4.01 3.33 (1.8-7.7) 10^3/uL BMP 06/26/24 06/27/24 06:01 05:13 Sodium 138 138 Potassium 3.9 3.8 Chloride 101 103 Carbon Dioxide 25 27 BUN 11 18 Creatinine 0.4 L 0.5 Glucose 112 107 Calcium 9.4 9.1 Liver Function 06/26/24 06/27/24 Range/Units 06:01 05:13 Total Bilirubin 0.4 0.3 (0.15-1.2) mg/dL AST 55 H 41 H (0-32) U/L ALT 29 32 (0-33) U/L Alkaline Phosphatase 70 69 (35-105) U/L Albumin 3.8 3.5 (3.5-5.2) g/dL Microbiology 06/25/24 08:49 Urine Culture - Final Urine,Clean Catch Cardiac Studies: No Data to Display
--- NOTE | 2024-06-27 16:59 | W.PM.OPSUD ---
Surgery/Procedure H&P Update DATE OF PROCEDURE: June 27, 2024 DATE H&P PERFORMED: 06/26/24 H&P UPDATE INFORMATION: I have reviewed H&P completed within last 30 days, I have examined patient prior to procedure and No changes to prior documentation PREOP DIAGNOSIS: Cervical spinal stenosis PLANNED PROCEDURE: Operation Date: 06/27/24 15:40 Proposed Procedures p Cervical Posterior Fusion Cervical 2 to Cervical 5 fusion with decompression(Not Applicable) - Geo Watkins, DO
--- NOTE | 2024-06-27 17:30 | PM.PN ---
Subjective Subjective: Without improvement in her symptoms, continues to have worsened weakness, numbness of upper extremities. Pain in her neck. This morning question of numbness, weakness of lower extremities, but confirms that the symptoms are currently at baseline congruent with her chronic symptoms. Vitals/I&O/Wt Last Vital Signs Temp 98.1 F 06/27/24 12:52 Pulse 61 06/27/24 12:52 Resp 16 06/27/24 12:52 BP 128/73 06/27/24 12:52 Pulse Ox 98 06/27/24 12:52 O2 Del Method Room Air 06/27/24 12:52 06/27/24 06/27/24 06/27/24 06:59 14:59 22:59 Intake Total 0 / 1300 Output Total 350 / 1200 Balance -350 / 100 Weight last 48 hrs Weight 56.155 kg Weight 56.518 kg Physical Exam Const: COMMON NORMALS: patient oriented x3 and alert GENERAL APPEARANCE: cooperative ORIENTATION/CONSCIOUSNESS: Yes awake HENMT: COMMON NORMALS: oropharynx normal Neck/C-Spine: COMMON NORMALS: no JVD Resp: COMMON NORMALS: normal respiratory effort and clear to auscultation bilaterally AUSCULTATION: clear to auscultation bilaterally Cardio: COMMON NORMALS: no JVD, regular rhythm, S1 normal heart sound present, S2 normal heart sound present and No murmurs present (Cardio) RHYTHM: regular rhythm HEART SOUNDS: S1 normal heart sound present and S2 normal heart sound present GI: COMMON NORMALS: Normal to inspection, nondistended, normoactive bowel sounds present, Soft to palpation and non-tender PALPATION: Yes Soft to palpation Extremity: COMMON NORMALS: no joint enlargement and no pedal edema OTHER: Chronic contractures right upper and lower extremity. Diminished sensation right upper extremity, bilateral hands, forearms, right lower extremity and distal bilateral lower extremities. Neuro: COMMON NORMALS: patient oriented x3 SENSORIUM/ORIENTATION: Yes alert Skin: COMMON NORMALS: no rashes or lesions noted GENERAL SKIN EXAM: no rashes or lesions noted Urinary Catheter Management: Ramirez: Cath Placed During This Visit: yes Reason for Continuing Indwelling Catheter: Other Urinary Catheter Date of Insertion: 06/26/24 Urinary Catheter Time of Insertion: 02:41 Data 06/27/24 05:13 06/27/24 05:13 Micro: Microbiology 06/25/24 08:49 Urine Culture - Final Urine,Clean Catch A&P Assessment and plan (1) Fall: Initially some concern this morning regarding lower extremity weakness, but she confirms symptoms are chronic. She does report having some history of intermittent numbness in the groin area, denies stool or urine incontinence. Lumbar spine CT requested. Plan for surgical intervention today. Reviewed orthopedic note. On Methocarbamol. Discussed with nursing, employment case manager. Appears to have some degree of urinary tract infection as well, continue ceftriaxone at current time. Unfortunately urine culture unrevealing. Pain control with acetaminophen, hydrocodone as needed. IV morphine for severe breakthrough pain. (2) Cervical spondylosis with myelopathy: Pending surgery, tentatively planned for tomorrow. Reviewed orthopedic note. Discussed with employment case manager. Severe disease with worsening of symptoms after fall this morning, with previously already planned cervical spine surgery. (3) UTI (urinary tract infection): Continue ceftriaxone, reviewed urine culture, unfortunately unrevealing. Reviewed CBC. 11-20 WBC in urine. She otherwise afebrile, without leukocytosis. Has had some feeling like she needs to void recently but did not when she tried to. Discussed with her we will treat possible urinary tract infection. Plan Epilepsy: Continue antiepileptics Hypertension: Continue atenolol. Monitor blood pressures. Hold HCTZ for now. Hypokalemia: Mild hypokalemia, potassium 3.3. Replace. Check magnesium. Goals of care: In case of cardiopulmonary arrest she would want attempted resuscitation. In case she could not make decisions for herself, she will let us know who she might consider to make decisions on her behalf, she does not have a person in mind currently, but as per discussion will think about it and contact the person to let them and us know. PDMP PDMP Reviewed: Not Reviewed Attestations Medical Necessity Statement*: Continue admission for assessment management of severe cervical spondylosis with myelopathy, fall, additional injury, possible spinal cord contusion, anticipated possible advancement of surgical repair, treatment of urinary tract infection in a lady with underlying epilepsy, HTN, other comorbidities. Diagnoses Fall W19.XXXA Cervical spondylosis with myelopathy M47.12 UTI (urinary tract infection) N39.0
[2024-06-27] MEDS: lidocaine-epi 1% 20 mL INJ INJECTION (18:16)
[2024-06-27] MEDS: VANCOMYCIN ADD-Vantage 1,000 MG VIAL 1000 MG INTRA-ARTI (18:17)
--- NOTE | 2024-06-27 19:47 | P.OP_ITS ---
Operative Report Date of procedure: June 27, 2024 Pre-op diagnosis: Cervical stenosis with myelopathy Post-op diagnosis: same Procedure done: 1. C2-C5 posterior spine fusion 2. C2-C5 posterior spine instrumentation 3. C2-3 laminectomy with partial facetectomies 4. C3-4 laminectomy with partial facetectomies 5. C4-5 laminectomy with partial facetectomies 6. Use of computer navigation stereotactic for spine 7. Use of allograft for spine 8. Use of autograft through same incision for spine Surgeon: Geo Watkins DO Estimated blood loss (mL): 50 Procedure: 1. C2-C5 posterior spine fusion 2. C2-C5 posterior spine instrumentation 3. C2-3 laminectomy with partial facetectomies 4. C3-4 laminectomy with partial facetectomies 5. C4-5 laminectomy with partial facetectomies 6. Use of computer navigation stereotactic for spine 7. Use of allograft for spine 8. Use of autograft through same incision for spine Patient is brought to our suite after undergoing anesthesia was placed in the prone position. All his impingement well-padded. Patient's prepped draped in also fashion. Skin incisions made over the posterior cervical spine. Subperiosteal dissection was made down to C2-C5 lateral masses bilaterally. Retractors were placed. Next tension was brought to placing the fiducial. This is done by placing a spinous process clamp onto the C5 spinous process. And then the fiducial was placed. C-arm was brought in and spun around the patient. The information was here was unloading computer and this was used for placing the prior screws at C2. Next attention was brought to placing the prior screws at C2 this is done by drilling into the lateral mass of C2. And then placing the computer navigated drill up through the pars using computer navigation. Pedicle feeler was used and then a computer navigated screw was placed is about 22 mm screws placed b ilaterally. He was brought to placing the lateral mass screws. This was done by using the high-speed bur. Followed by the drill. Followed by the pedicle feeler. Followed by placing 14 mm screws. This was done at C3 bilaterally, C4 bilaterally, and C5 bilaterally. This tension was brought to performing laminectomies. This was done starting at C4-5. Laminectomy of C4 was performed by using a rongeur to take down the spinous process followed by using the high-speed bur to take down the lamina this done by cutting the lamina bilaterally. Curved curettes and Kerrison rongeurs used to remove the remaining bur bone. And the lamina was taken off along with the spinous process. Along with the ligamentum flavum from C4 down to C5. Next the medial aspect of the facets were taken down using the Kerrison rongeur's. This was done at C4-5 bilaterally. Next attention was brought to the C3-4 level. This was done by doing the laminectomy at C3 using the high-speed bur to cut through the lamina bilaterally. And then the rongeur and lamina taken off in 1 piece. The ligamentum flavum was taken down to from C3-C4. Extension was brought to taking down the medial aspect of the facets was done using the Kerrison rongeur. This was done bilaterally. Next tension was brought to the C2-3 level. The C2 spinous process was taken down with a rongeur. The C2 lamina was thinned out with a high-speed bur. And a curved curette and Kerrisons were used to take down the C2 lamina along with the medial aspect of the facet joints bilaterally. The ligamentum flavum was then taken down up to C1. Dura was in good repair. Medial aspect of facet joints were taken down. This was done bilaterally. Extension was brought to connecting the rods to the screw caps. The screw caps were placed onto the tulips while or after the dany was placed. In the screw caps were torqued down this was done bilaterally. Next attention was brought to decorticating the lateral masses the stem with a high-speed bur. Osteopenic bone graft was then packed in the lateral gutters. Along with the autograft from the lamina. Deep drain was placed along with vancomycin powder. Wound was closed in layered fashion with 0 Vicryl 2-0 Vicryl and Monocryl suture. Sterile dressings were applied patient was transferred to the PACU in stable condition.
[2024-06-27] MEDS: fentaNYL 50 mcg/mL INJ 2mL IVP ×2 (20:25→20:30)
[2024-06-27] MEDS: HYDROmorphone 1 mg/mL INJ 1 mL 0.5 MG IVP (21:00)
--- NOTE | 2024-06-27 21:28 | ANE.PACU2 ---
Inpatient post-anesthesia follow up: Airway intact: Yes Vital signs: Temperature 97.5 F Pulse Rate 83 Respiratory Rate 18 Blood Pressure 126/71 Pulse Oximetry 100 Oxygen Delivery Me thod Room Air Oxygen Flow Rate 2 Fraction of Inspir ed Oxygen Hydration adequate: Yes Nausea and vomiting: No Pain level: 2 Mental status: Baseline
[2024-06-27] MEDS: ceFAZolin 2,000 mg SDV 2000 MG IVP (21:42)
[2024-06-28] VITALS (7 sets, daily range): BP systolic 115–136; BP diastolic 63–76; PULSE 69–83; RESP 14–18; TEMP 36.4–37.2; O2SAT 97–100
[2024-06-28] MEDS: ketorolac 30 mg/mL INJ IVP ×3 (01:33→22:28)
[2024-06-28] MEDS: HYDROcodone-acetaminophen 5-325 mg Tablet 1 TAB PO ×5 (03:00→21:15)
[2024-06-28] MEDS: ceFAZolin 2,000 mg SDV 2000 MG IVP ×2 (03:01→13:01)
[2024-06-28] MEDS: morphine 4 mg/mL SDV 1 mL 2 MG IVP (05:21)
[2024-06-28 07:09] LABS: Hematocrit 30.2 % (36-47); Lymphocytes # 1.5 10^3/uL (0.8-4.8); Lymphocytes % 17.8 %; Mean Corpuscular HGB Conc 32.8 g/dL (30-55); Mean Corpuscular Hemoglobin 32.5 pg (27-33); Mean Platelet Volume 9.4 fL (7.4-10.4); Monocytes # 0.7 10^3/uL (0.2-0.9); Neutrophils # 6.21 10^3/uL (1.8-7.7); Neutrophils % 74.1 %; Nucleated Red Blood Cells % 0 %; Platelet Count 248 10^3/cmm (157-399); Red Blood Count 3.05 10^6/uL (3.85-5.65); Red Cell Distribution Width 12.5 % (12.1-15.1); White Blood Count 8.38 10^3/uL (3.29-11.43)
[2024-06-28 07:27] LABS: Alanine Aminotransferase 30 U/L (0-33); Albumin Level 3.4 g/dL (3.5-5.2); Alkaline Phosphatase 64 U/L (35-105); Anion Gap 15.4 (5-19); Aspartate Amino Transferase 34 U/L (0-32); Blood Urea Nitrogen 15 mg/dL (8-23); Carbon Dioxide 23 mmol/L (22-29); Chloride 103 mmol/L (98-107); Creatinine Clr Calc Pharmacy 59.0238; Globulin 2.2 g/dL (1.3-4.6); Glomerular Filtration Rate 159.2 mL/min (90-130); Glucose 115 mg/dL (65-115); Osmolality Calculated 286 mOsm/kg (285-295); Potassium 4.4 mmol/L (3.5-5.1); Sodium 137 mmol/L (136-145); Total Bilirubin 0.2 mg/dL (0.15-1.2); Total Protein 5.6 g/dL (6.6-8.7)
[2024-06-28] MEDS: cefTRIAXone 1,000 mg SDV 1000 MG IVP (08:57)
[2024-06-28] MEDS: methocarbamol 500 mg Tablet 1000 MG PO ×3 (08:57→21:15)
[2024-06-28] MEDS: atenolol 50 mg Tablet PO (08:57)
[2024-06-28] MEDS: lacosamide 50 mg Tablet 150 MG PO ×2 (08:57→17:15)
[2024-06-28] MEDS: levETIRAcetam 500 mg Tablet 2000 MG PO ×2 (08:57→17:15)
[2024-06-28] MEDS: docusate sodium 100 mg Capsule PO ×2 (08:57→17:15)
--- NOTE | 2024-06-28 11:09 | P.PN_ITS ---
Subjective 2 Subjective: She was in pain this morning, but reports that this did respond to pain medication. Denies any difficulty breathing. Tolerating oral intake. Discussed with her the use of incentive spirometer. So far unimproved symptoms of numbness and weakness in her UE. Vitals/I&O/Wt Last Vital Signs Temp 97.7 F 06/28/24 07:36 Pulse 80 06/28/24 07:36 Resp 18 06/28/24 07:36 BP 129/63 06/28/24 07:36 Pulse Ox 98 06/28/24 07:36 O2 Del Method Room Air 06/28/24 07:36 O2 Flow Rate 2 06/27/24 21:27 06/27/24 06/28/24 06/28/24 22:59 06:59 14:59 Intake Total 600 / 600 1480 / 2080 480 / 480 Output Total 400 / 400 300 / 700 Balance 200 / 200 1180 / 1380 480 / 480 Weight last 48 hrs Weight 58.377 kg Weight 56.155 kg Physical Exam 2 Narrative: Sitting up in chair. Const: COMMON NORMALS: patient oriented x3 and alert GENERAL APPEARANCE: c ooperative ORIENTATION/CONSCIOUSNESS: Yes awake HENMT: COMMON NORMALS: oropharynx normal OTHER: Cervical collar in place. Neck/C-Spine: COMMON NORMALS: no JVD Resp: COMMON NORMALS: normal respiratory effort and clear to auscultation bilaterally AUSCULTATION: clear to auscultation bilaterally Cardio: COMMON NORMALS: no JVD, regular rhythm, S1 normal heart sound present, S2 normal heart sound present and No murmurs present (Cardio) RHYTHM: regular rhythm HEART SOUNDS: S1 normal heart sound present and S2 normal heart sound present GI: COMMON NORMALS: Normal to inspection, nondistended, normoactive bowel sounds present, Soft to palpation and non-tender PALPATION: Yes Soft to palpation Extremity: COMMON NORMALS: no joint enlargement and no pedal edema OTHER: Chronic contractures right upper and lower extremity. Diminished sensation right upper extremity, bilateral hands, forearms, right lower extremity and distal bilateral lower extremities. Neuro: COMMON NORMALS: patient oriented x3 SENSORIUM/ORIENTATION: Yes alert Skin: COMMON NORMALS: no rashes or lesions noted GENERAL SKIN EXAM: no rashes or lesions noted Urinary Catheter Management: Ramirez: Cath Placed During This Visit: yes Reason for Continuing Indwelling Catheter: Acute Urinary Retention or Obstruction Urinary Catheter Date of Insertion: 06/26/24 Urinary Catheter Time of Insertion: 02:41 Data 06/28/24 06:47 06/28/24 06:47 Micro: Microbiology 06/25/24 08:49 Urine Culture - Final Urine,Clean Catch A&P Assessment and plan (1) Cervical spondylosis with myelopathy: Underwent C2-5 posterior spinal fusion, instrumentation, C2-5 partial facetectomies last night. Bothered by pain this morning, but this has been relieved by medication including IV morphine. Continues with acetaminophen for mild to moderate pain, Toradol, hydrocodone. IV morphine as needed for severe breakthrough. Continues with postoperative care, pending assessment by orthopedics. Reviewed orthopedic note. Discussed with therapeutic case manager, further close discharge planning is underway. Tolerating regular diet. Lovenox VTE prophylaxis. (2) Fall: Continue fall precautions. Initially some concern this morning regarding lower extremity weakness, but she confirms symptoms are chronic. She does report having some history of intermittent numbness in the groin area, denies stool or urine incontinence. Lumbar spine CT requested. Plan for surgical intervention today. Reviewed orthopedic note. On Methocarbamol. Discussed with nursing, therapeutic case manager. Appears to have some degree of urinary tract infection as well, continue ceftriaxone at current time. Unfortunately urine culture unrevealing. Pain control with acetaminophen, hydrocodone as needed. IV morphine for severe breakthrough pain. (3) UTI (urinary tract infection): Complete course with ceftriaxone, reviewed urine culture, unfortunately unrevealing. Reviewed CBC. CMP. 11-20 WBC in urine. She otherwise afebrile, without leukocytosis. Has had some feeling like she needs to void recently but did not when she tried to. Discussed with her we will treat possible urinary tract infection. Plan Transaminitis: Minimal transaminitis, AST up to 34. Repeat CMP. Epilepsy: Continue antiepileptics Hypertension: Continue atenolol. Monitor blood pressures. Hold HCTZ for now. Hypokalemia: Mild hypokalemia, potassium 3.3. Replace. Check magnesium. Goals of care: In case of cardiopulmonary arrest she would want attempted resuscitation. In case she could not make decisions for herself, she will let us know who she might consider to make decisions on her behalf, she does not have a person in mind currently, but as per discussion will think about it and contact the person to let them and us know. PDMP PDMP Reviewed: Not Reviewed Attestations 2 Medical Necessity Statement*: In admission for management after spinal fusion, facetectomies C2-5, after severe cervical stenosis with myelopathy worsened after a fall. and High MDM includes amount and/or complexity of data reviewed/ordered [ previous or external records, resulted lab(s)/test(s), ordered lab(s)/test(s) and other healthcare professional discussion] and described risk of complication, morbidity or mortality of management as documented Diagnoses Cervical spondylosis with myelopathy M47.12 Fall W19.XXXA UTI (urinary tract infection) N39.0
[2024-06-28] MEDS: enoxaparin 40 mg/0.4 mL Syringe SUBCUT (13:01)
--- NOTE | 2024-06-28 15:11 | ECG_ITS ---
[facility] Date: 2024-06-28 Pat Name: Marisa Car Department: Room: 263 Gender: Female Review Trainer: : 1955 Requested By: Lorenzo Subramanian Order Number: [id number] Reading MD: ANITA TORRES Measurements Intervals [place] Rate: 78 P: 66 UT: 179 QRS: 44 QRSD: 86 T: 17 QT: 336 QTc: 383 Interpretive Statements SINUS RHYTHM NONSPECIFIC T-WAVE ABNORMALITY Compared to ECG 06/25/2024 11:43:57 Possible ischemia no longer present T-wave abnormality still present Electronically Signed On 06-30-2024 19:31:37 OIL WELL SERVICE OPERATOR HELPER by ANITA TORRES [email or web address]
[2024-06-29] MEDS: HYDROcodone-acetaminophen 5-325 mg Tablet 1 TAB PO ×3 (01:31→12:06)
[2024-06-29 02:18] VITALS: RESP 16
[2024-06-29] MEDS: morphine 4 mg/mL SDV 1 mL 2 MG IVP (02:18)
[2024-06-29 05:10] LABS: Basophils % 0.3 %; Eosinophils # 0.1 10^3/uL (0.0-0.8); Eosinophils % 0.8 %; Lymphocytes # 2.3 10^3/uL (0.8-4.8); Lymphocytes % 30.2 %; Mean Corpuscular HGB Conc 32.1 g/dL (30-55); Mean Corpuscular Hemoglobin 32.6 pg (27-33); Mean Corpuscular Volume 101.4 fl (85-98); Mean Platelet Volume 9.5 fL (7.4-10.4); Monocytes # 0.8 10^3/uL (0.2-0.9); Monocytes % 10.6 %; Neutrophils # 4.34 10^3/uL (1.8-7.7); Neutrophils % 57.7 %; Nucleated Red Blood Cells % 0 %; Platelet Count 226 10^3/cmm (157-399); Red Blood Count 2.76 10^6/uL (3.85-5.65); Red Cell Distribution Width 12.8 % (12.1-15.1); White Blood Count 7.52 10^3/uL (3.29-11.43)
[2024-06-29] MEDS: ketorolac 30 mg/mL INJ IVP (05:11)
[2024-06-29 05:12] VITALS: BP 113/68; PULSE 73; RESP 17; TEMP 36.8; O2SAT 96
[2024-06-29 05:46] LABS: Alanine Aminotransferase 48 U/L (0-33); Alkaline Phosphatase 66 U/L (35-105); Anion Gap 13.5 (5-19); Aspartate Amino Transferase 53 U/L (0-32); Blood Urea Nitrogen 14 mg/dL (8-23); Calcium 8.6 mg/dL (8.5-10.5); Carbon Dioxide 25 mmol/L (22-29); Chloride 105 mmol/L (98-107); Creatinine Clr Calc Pharmacy 59.0238; Glomerular Filtration Rate 123.1 mL/min (90-130); Glucose 109 mg/dL (65-115); Osmolality Calculated 289 mOsm/kg (285-295); Potassium 4.5 mmol/L (3.5-5.1); Sodium 139 mmol/L (136-145); Total Bilirubin 0.2 mg/dL (0.15-1.2)
[2024-06-29 06:00] VITALS: BMI 22.7
[2024-06-29] MEDS: docusate sodium 100 mg Capsule PO (07:50)
[2024-06-29] MEDS: atenolol 50 mg Tablet PO (07:51)
[2024-06-29] MEDS: levETIRAcetam 500 mg Tablet 2000 MG PO (07:51)
[2024-06-29] MEDS: cefTRIAXone 1,000 mg SDV 1000 MG IVP (07:51)
[2024-06-29] MEDS: lacosamide 50 mg Tablet 150 MG PO (07:51)
[2024-06-29] MEDS: methocarbamol 500 mg Tablet 1000 MG PO ×2 (07:52→13:25)
[2024-06-29 08:00] VITALS: BP 144/75; PULSE 77; RESP 20; TEMP 36.8; O2SAT 96
--- NOTE | 2024-06-29 09:49 | PM.PN ---
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 but equivalent to pre op moving legs Urinary Catheter Management: Ramirez: Cath Placed During This Visit: yes Reason for Continuing Indwelling Catheter: Acute Urinary Retention or Obstruction Urinary Catheter Date of Insertion: 06/26/24 Urinary Catheter Time of Insertion: 02:41 Data 06/29/24 04:56 06/29/24 04:56 A&P Assessment and plan (1) Status post cervical spinal fusion: POD #2 posterior cervical fusion f/u ortho clinic next week d/c on steroids to [place] PDMP PDMP Reviewed: Not Reviewed Attestations Medical Necessity Statement*: per primary service Coding Level of Care Code Acute Code for Chg Fwd Diagnoses Status post cervical spinal fusion Z98.1
[2024-06-29] MEDS: enoxaparin 40 mg/0.4 mL Syringe SUBCUT (10:43)
[2024-06-29 10:49] LABS: Influenza A NEGATIVE (Negative); Influenza B NEGATIVE (Negative); Respiratory Syncytial Virus Ce NEGATIVE (Negative); SARS-CoV-2 PCR NEGATIVE (Negative)
[2024-06-29 12:00] VITALS: BP 129/63; PULSE 78; RESP 18; TEMP 36.8; O2SAT 97
[2024-06-29 14:51] VITALS: BP 129/63; PULSE 78; O2SAT 97
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
== END 2024-06-29 14:15 | disposition skilled nursing facility (03) | DRG 472 ==
LOC: ER 10:12 → ER IP 11:20 → MEDSURG 15:19
PROVIDERS: Orthopaedic Surgery; Admitting Provider Internal Medicine; Emergency Provider Family Medicine; Family Provider Family Medicine; PCP Nurse Practitioner Family; Visit Provider Internal Medicine
PROC: (CPT 22600; principal; 2024-06-27 15:20)
DX: M47.12 Other spondylosis with myelopathy, cervical region (principal); N39.0 Urinary tract infection, site not specified; M48.02 Spinal stenosis, cervical region; M41.86 Other forms of scoliosis, lumbar region; M48.061 Spinal stenosis, lumbar region without neurogenic claudication; M47.896 Other spondylosis, lumbar region; M47.897 Other spondylosis, lumbosacral region; M48.07 Spinal stenosis, lumbosacral region; D64.89 Other specified anemias; R51.9 Headache, unspecified; G40.909 Epilepsy, unspecified, not intractable, without status epilepticus; G62.9 Polyneuropathy, unspecified; I10 Essential (primary) hypertension; M62.48 Contracture of muscle, other site; E87.6 Hypokalemia; W01.190A Fall on same level from slipping, tripping and stumbling with subsequent striking against furniture, initial encounter; R74.01 Elevation of levels of liver transaminase levels; Z11.52 Encounter for screening for COVID-19; Z91.81 History of falling; Z79.899 Other long term (current) drug therapy; R29.6 Repeated falls
CPT/HCPCS: 36415; 36416; 51702; 51798; 70450; 72125; 72131; 80053; 81001; 82962; 83735; 85025; 87086; 87637; 93005; 96372; 97161; 97530; 99285; C1713; C9359; J0330; J0690; J0696; J1100; J1171; J1650; J1885; J2250; J2270; J2405; J2704; J3010; J3370; J3490; J7030

== ENCOUNTER → 2024-07-10 08:18 | Outpatient (BNVA) | payer MEDICARE, MEDICAID, SELFPAY | PROVIDERS: Family Provider Family Medicine; PCP Nurse Practitioner Family; Visit Provider Orthopaedic Surgery | DX: Z98.1 Arthrodesis status (principal) | CPT/HCPCS: 99024 ==

== ENCOUNTER 2024-07-26 09:55 | Emergency (ER) | payer MEDICARE, MEDICAID, SELFPAY ==
[2024-07-26 09:57] VITALS: BP 160/87; PULSE 72; RESP 16; TEMP 36.4; O2SAT 95; BMI 23.9
--- NOTE | 2024-07-26 10:07 | ECG_ITS ---
[facility] Test Date: 2024-07-26 Pat Name: Marisa Car Department: Room: Gender: Female Final Installer Inspector: : 1955 Requested By: Bryn Chandra Order Number: [id number] Callum MD: Alexx Santacruz M.D. Measurements Intervals [place] Rate: 67 P: 47 W[place]: 214 QRS: 68 QRSD: 100 T: 20 QT: 364 QTc: 386 Interpretive Statements SINUS RHYTHM WITH FIRST DEGREE AV BLOCK MINIMAL ST DEPRESSION [0.025+ mV ST DEPRESSION] Compared to ECG 06/28/2024 07:18:06 First degree AV block now present ST (T wave) deviation now present T-wave abnormality no longer present Electronically Signed On 07-27-2024 19:07:17 CDT by Alexx Santacruz M.D. [email or web address]
--- NOTE | 2024-07-26 10:18 | CTR_ITS ---
PROCEDURE INFORMATION: Exam: CT Head Without Contrast Exam date and time: 07/26/2024 10:30 AM Age: 69 years old Clinical indication: Other: Seizure; Prior surgery; Surgery date: 6+ months; Surgery type: C spine TECHNIQUE: Imaging protocol: Computed tomography of the head without contrast. Radiation optimization: All CT scans at this facility use at least one of these dose optimization techniques: automated exposure control; mA and/or kV adjustment per patient size (includes targeted exams where dose is matched to clinical indication); or iterative reconstruction. COMPARISON: 1. CT head wo con* [id number] 05/26/2024 1:[address] head wo con* [id number] 06/25/2024 8:57 AM RADIATION DOSE METRICS: Total DLP (mGy-cm): 963.48 FINDINGS: Brain: No hemorrhage. Mild subcortical white matter microvascular ischemic change. No mass effect. Cerebral ventricles: No ventriculomegaly. Paranasal sinuses: Visualized sinuses are unremarkable. No fluid levels. Mastoid air cells: Visualized mastoid air cells are well aerated. Bones: Unremarkable. No acute fracture. Soft tissues: Unremarkable. CT/CT head wo con* [id number] IMPRESSION: No acute intracranial findings.
--- NOTE | 2024-07-26 10:25 | W.ED.SEIZURE ---
HPI - Seizure General: Chief Complaint: Seizure Stated Complaint: seizure Time Seen by Provider: 07/26/24 10:01 History of Present Illness: HPI Narrative: 69-year-old female who presents to the emergency room with report of seizures. She has a history of tonic-clonic seizures in the past she is on Keppra she is managed by a neurologist out of [place]. 4 weeks ago she had a neck surgery she has been recovering at the halfway she states she is having absence seizure's she reports she has a aura she can dissipate them oncoming and is fully aware of the seizure the whole time she is awake cognizant of what is going on she says she is aware that she is having his absence seizures on a couple of occasions she is forgotten about them and then remember later per her description. She is taking her Keppra regularly no recent changes or missed doses Associated symptoms: Deny chest pain, chills or fever(s) Related Data Home Medications ?Medication ?Instructions ?Recorded ?Confirmed hydrochlorothiazide 25 mg tablet 25 mg PO DAILY 09/12/23 07/26/24 acetaminophen 325 mg tablet 650 mg PO Q6H PRN Pain 05/26/24 07/26/24 (Tylenol) lacosamide 150 mg tablet 150 mg PO BID 05/26/24 07/26/24 levetiracetam 1,000 mg tablet 2,000 mg PO BID 05/26/24 07/26/24 nabumetone 500 mg tablet 500 mg PO BID 05/26/24 07/26/24 methocarbamol 500 mg tablet 1,000 mg PO TID 06/12/24 07/26/24 hydrocodone 5 mg-acetaminophen 325 1 tab PO BID PRN Pain 07/10/24 07/26/24 mg tablet atenolol 25 mg tablet 25 mg PO DAILY 07/26/24 07/26/24 Allergies Allergy/AdvReac Type Severity Reaction Status Date / Time fluoxetine (From Prozac) Allergy ALGY-Rash Verified 07/10/24 08:26 lamotrigine (From Lamictal) Allergy Unkown Verified 07/10/24 08:26 pollen extracts Allergy Unknown Verified 07/10/24 08:26 Review of Systems Const: Denies: fever(s) or chills Card: Denies: chest pain Resp: Denies: dyspnea GI: Denies: abdominal pain : Denies: dysuria, urinary frequency or urinary urgency Musc: Denies: neck pain or back pain Skin/Breast: Denies: rash PFSH ED PFSH: Medical History Peripheral neuropathy Cervical spondylosis with myelopathy Family History Father Cancer Grandfather Cancer Grandmother Stroke Family/Other Brain cancer Social History Smoking and tobacco/nicotine status: never used tobacco/nicotine Alcohol intake: never Lives independently: Yes Household members: spouse Marital status: Current occupational status: disabled Physical Exam Const: GENERAL APPEARANCE: cooperative ORIENTATION/CONSCIOUSNESS: Yes awake, Yes oriented to person, Yes oriented to place and Yes oriented to time HENMT: COMMON NORMALS: normocephalic, atraumatic and hearing grossly normal bilaterally HEAD & SCALP: normocephalic and atraumatic Neck/C-Spine: OTHER: [place] J collar in place for recent neck surgery Resp: COMMON NORMALS: normal respiratory effort, No retractions, No use of accessory muscles and clear to auscultation bilaterally AUSCULTATION: clear to auscultation bilaterally Cardio: COMMON NORMALS: regular rate, regular rhythm and No murmurs present (Cardio) RATE: regular rate RHYTHM: regular rhythm GI: COMMON NORMALS: Soft to palpation and No hepatosplenomegaly present AUSCULTATION: Yes normoactive bowel sounds PALPATION: Yes Soft to palpation, No Tenderness to palpation present (GI), No Guarding due to palpation present (GI) and Yes No hepatosplenomegaly present Extremity: COMMON NORMALS: normal to inspection, capillary refill normal, no clubbing, cyanosis or edema, no calf tenderness and no pedal edema Neuro: SENSORIUM/ORIENTATION: Yes oriented to person, Yes oriented to place and Yes oriented to time Skin: COMMON NORMALS: no rashes or lesions noted GENERAL SKIN EXAM: no rashes or lesions noted Course Vital Signs: Vital signs: Vital Signs Temperature 97.6 F 07/26/24 09:57 Pulse Rate 62 07/26/24 13:00 Respiratory Rate 16 07/26/24 09:57 Blood Pressure 132/76 07/26/24 13:00 Pulse Oximetry 98 07/26/24 13:00 Oxygen Delivery Me thod Room Air 07/26/24 13:00 MDM - Seizure MDM Narrative Medical decision making narrative: No further episodes while she was here. With these episodes of what she is describing a Seizure She States She Is Fully Aware of Them the Entire Time. She Is on Keppra and Lacosamide. We Did Get a Keppra Level Will Have Her Follow-Up with Her Primary Care Doctor No Other Significant Abnormalities Noted. Continue Same Medications for Now Lab Data 07/26/24 09:45 07/26/24 09:45 Labs: Radiology Impressions Head CT 07/26/24 10:18 IMPRESSION: No acute intracranial findings. Laboratory Results WBC 6.57 10^3/uL (3.29-11.43) 07/26/24 09:45 RBC 3.60 10^6/uL (3.85-5.65) L 07/26/24 09:45 Hgb 11.50 g/dL (11.27-16.99) 07/26/24 09:45 Hct 36.2 % (36-47) 07/26/24 09:45 MCV 100.6 fl (85-98) H 07/26/24 09:45 MCH 31.9 pg (27-33) 07/26/24 09:45 MCHC 31.8 g/dL (30-55) 07/26/24 09:45 RDW 13.3 % (12.1-15.1) 07/26/24 09:45 Plt Count 289 10^3/cmm (157-399) 07/26/24 09:45 MPV 9.5 fL (7.4-10.4) 07/26/24 09:45 Neut % (Auto) 53.4 % 07/26/24 09:45 Lymph % (Auto) 34.6 % 07/26/24 09:45 [place] % (Auto) 7.9 % 07/26/24 09:45 Eos % (Auto) 3.2 % 07/26/24 09:45 Baso % (Auto) 0.6 % 07/26/24 09:45 Neut # (Auto) 3.51 10^3/uL (1.8-7.7) 07/26/24 09:45 Lymph # (Auto) 2.3 10^3/uL (0.8-4.8) 07/26/24 09:45 [place] # (Auto) 0.5 10^3/uL (0.2-0.9) 07/26/24 09:45 Eos # (Auto) 0.2 10^3/uL (0.0-0.8) 07/26/24 09:45 Baso # (Auto) 0.0 10^3/uL (0.0-0.1) 07/26/24 09:45 Nucleated RBC % (auto) 0 % 07/26/24 09:45 Nucleated RBCs # 0.0 /100WBC 07/26/24 09:45 Sodium 136 mmol/L (136-145) 07/26/24 09:45 Potassium 3.6 mmol/L (3.5-5.1) 07/26/24 09:45 Chloride 97 mmol/L (98-107) L 07/26/24 09:45 Carbon Dioxide 30 mmol/L (22-29) H 07/26/24 09:45 Anion Gap 12.6 (5-19) 07/26/24 09:45 BUN 14 mg/dL (8-23) 07/26/24 09:45 Creatinine 0.6 mg/dL (0.5-0.9) 07/26/24 09:45 GFR Calculation 99.7 mL/min (90-130) 07/26/24 09:45 Glucose 94 mg/dL (65-115) 07/26/24 09:45 Calculated Osmolality 282 mOsm/kg (285-295) L 07/26/24 09:45 Calcium 9.7 mg/dL (8.5-10.5) 07/26/24 09:45 Total Bilirubin 0.3 mg/dL (0.15-1.2) 07/26/24 09:45 AST 17 U/L (0-32) 07/26/24 09:45 ALT 14 U/L (0-33) 07/26/24 09:45 Alkaline Phosphatase 118 U/L (35-105) H 07/26/24 09:45 Total Protein 7.1 g/dL (6.6-8.7) 07/26/24 09:45 Albumin 4.4 g/dL (3.5-5.2) 07/26/24 09:45 Globulin 2.7 g/dL (1.3-4.6) 07/26/24 09:45 Urine Color Yellow (Yellow) 07/26/24 12:50 Urine Appearance Clear (CLEAR) 07/26/24 12:50 Urine pH 7.0 (5-7) 07/26/24 12:50 Ur Specific [place] 1.009 (1.005-1.030) 07/26/24 12:50 Urine Protein Negative (Negative) 07/26/24 12:50 Urine Glucose (UA) Negative (Normal) 07/26/24 12:50 Urine Ketones Negative (Negative) 07/26/24 12:50 Urine Blood Negative (Negative) 07/26/24 12:50 Urine Nitrate Negative (Negative) 07/26/24 12:50 Urine Bilirubin Negative (Negative) 07/26/24 12:50 Urine Urobilinogen 1.0 mg/dL (Negative) 07/26/24 12:50 Ur Leukocyte Esterase Negative (Negative) 07/26/24 12:50 Urine RBC 0-2 /hpf (0-2) 07/26/24 12:50 Urine WBC 0-5 /hpf (0-5) 07/26/24 12:50 Ur Squamous Epith Cells 0-5 /hpf (0-5) 07/26/24 12:50 Amorphous Sediment Not Reportable 07/26/24 12:50 Urine Bacteria None seen /hpf (NONE) 07/26/24 12:50 Hyaline Casts 0-4 /lpf H 07/26/24 12:50 All radiology interpretation(s) finalized by discharge Discharge Plan Discharge Patient Disposition: Home Clinical Impression: Absence seizure, History of tonic-clonic seizures Condition: Stable Prescriptions: No Action hydrochlorothiazide 25 mg tablet 25 mg PO DAILY methocarbamol 500 mg tablet 1,000 mg PO TID hydrocodone-acetaminophen 5-325 mg tablet 1 tab PO BID PRN (Reason: Pain) atenolol 25 mg tablet 25 mg PO DAILY nabumetone 500 mg tablet 500 mg PO BID levetiracetam 1,000 mg tablet 2,000 mg PO BID lacosamide 150 mg tablet 150 mg PO BID acetaminophen [Tylenol] 325 mg Tablet 650 mg PO Q6H PRN (Reason: Pain) Discharge Orders: Discharge ED (Routine); Ordered 07/26/24 Ordered By: Bryn Morrow Referrals: Esperanza Gtz FNP [Primary Care Provider] - Discharge Diet: Usual diet Discharge Activity: Resume usual activity Patient Instructions: Opioid Safety, Pain Management Activity Restrictions/Additional Instructions: Thank you for choosing [facility] for your healthcare needs today. It is very important that you follow up as instructed or that you return to the Emergency Department should you have concerns or if your condition changes or worsens in any way. You were seen in the emergency room for a question of variation of your seizures. CT of your head was negative other labs unremarkable. At this point do not recommend changing any of your medications do recommend that you follow-up with your neurologist who you usually see. We did get a Keppra level while you were here today. Your other workup did not show any clinically significant changes. Print Language: Spanish Coding Level of Care Code ED Territory Supervisor for Agustin Peace
[2024-07-26 11:23] LABS: Basophils % 0.6 %; Eosinophils # 0.2 10^3/uL (0.0-0.8); Eosinophils % 3.2 %; Hematocrit 36.2 % (36-47); Lymphocytes # 2.3 10^3/uL (0.8-4.8); Lymphocytes % 34.6 %; Mean Corpuscular HGB Conc 31.8 g/dL (30-55); Mean Corpuscular Hemoglobin 31.9 pg (27-33); Mean Corpuscular Volume 100.6 fl (85-98); Mean Platelet Volume 9.5 fL (7.4-10.4); Monocytes # 0.5 10^3/uL (0.2-0.9); Monocytes % 7.9 %; Neutrophils # 3.51 10^3/uL (1.8-7.7); Neutrophils % 53.4 %; Nucleated Red Blood Cells % 0 %; Platelet Count 289 10^3/cmm (157-399); Red Cell Distribution Width 13.3 % (12.1-15.1); White Blood Count 6.57 10^3/uL (3.29-11.43)
[2024-07-26 11:40] LABS: Alanine Aminotransferase 14 U/L (0-33); Albumin Level 4.4 g/dL (3.5-5.2); Alkaline Phosphatase 118 U/L (35-105); Aspartate Amino Transferase 17 U/L (0-32); Blood Urea Nitrogen 14 mg/dL (8-23); Calcium 9.7 mg/dL (8.5-10.5); Carbon Dioxide 30 mmol/L (22-29); Chloride 97 mmol/L (98-107); Creatinine Clr Calc Pharmacy 60.2553; Globulin 2.7 g/dL (1.3-4.6); Glomerular Filtration Rate 99.7 mL/min (90-130); Glucose 94 mg/dL (65-115); Osmolality Calculated 282 mOsm/kg (285-295); Sodium 136 mmol/L (136-145); Total Bilirubin 0.3 mg/dL (0.15-1.2); Total Protein 7.1 g/dL (6.6-8.7)
[2024-07-26 11:46] LABS: Anion Gap 12.6 (5-19); Potassium 3.6 mmol/L (3.5-5.1)
[2024-07-26 13:00] VITALS: BP 132/76; PULSE 62; O2SAT 98
[2024-07-26 13:04] LABS: Bilirubin Urine Negative (Negative); Blood Urine Negative (Negative); Glucose Urine UA Negative (Normal); Ketones Urine Negative (Negative); Leukocyte Esterase Urine Negative (Negative); Nitrate Urine Negative (Negative); Protein Urine Negative (Negative); Specific Gravity, Urine 1.009 (1.005-1.030); Urine Appearance Clear (CLEAR); Urine Color Yellow (Yellow)
[2024-07-26 13:09] LABS: Add Urine Microscopic? YES; Bacteria Urine None Seen /hpf; Hyaline Casts Urine 0-4 /lpf; RBC Urine 0-2 /hpf (0-2); Squamous Epithelial Cell Urine 0-5 /hpf (0-5); WBC Urine 0-5 /hpf (0-5)
--- NOTE | 2024-07-26 14:37 | PC.NURSE ---
PER VERBAL ORDER FROM DR. HALEY, ORDER AND ADMIN METHOCARBAMOL PO 1000MG AND TYLENOL 650MG PO ONCE
[2024-07-26] MEDS: methocarbamol 500 mg Tablet 1000 MG PO (14:43)
[2024-07-26] MEDS: acetaminophen 325 mg Tablet 650 MG PO (14:43)
[2024-07-26 15:38] VITALS: BP 124/78; PULSE 71; O2SAT 98
[2024-07-28 10:39] LABS: Levetiracetam Immunoassy 87.1 mcg/mL (6.0-46.0)
== END 2024-07-26 15:38 | disposition home or self-care (01) ==
PROVIDERS: Emergency Provider Family Medicine; PCP Nurse Practitioner Family
DX: G40.A09 Absence epileptic syndrome, not intractable, without status epilepticus (principal); Z86.69 Personal history of other diseases of the nervous system and sense organs
CPT/HCPCS: 70450; 80053; 80177; 81001; 85025; 93005; 99284; J9999

== ENCOUNTER → 2024-08-07 08:07 | Outpatient (BNVA) | payer MEDICARE, MEDICAID, SELFPAY | PROVIDERS: PCP Nurse Practitioner Family; Visit Provider Orthopaedic Surgery | DX: Z98.1 Arthrodesis status (principal) | CPT/HCPCS: 72040; 99024 ==

== ENCOUNTER → 2024-09-18 08:39 | Outpatient (BNVA) | payer MEDICARE, MEDICAID, SELFPAY | PROVIDERS: PCP Nurse Practitioner Family; Visit Provider Orthopaedic Surgery | DX: Z98.1 Arthrodesis status (principal) | CPT/HCPCS: 72040; 99024 ==

== ENCOUNTER 2024-11-08 17:00 | Emergency (ER) | payer MEDICARE, MEDICAID, SELFPAY ==
[2024-11-08 17:03] VITALS: BP 160/77; PULSE 91; TEMP 36.9; O2SAT 98
--- OUTSIDE RECORDS SUMMARY | 2024-11-08 17:04 | XMS_ITS | Patient Health Record ---
Author Organization [facility] Address [address] [place], [place] [id number] Care Team Providers Care Pest Technician Name Role Phone Gtz SAW MAN, Esperanza Primary Care Provider Malcolm Blas MD, Jerry Unavailable [phone] Dre ENGL[place], Lizz Unavailable Unavailable Allergies Allergen (clinical drug ingredient) Drug/Non Drug Allergy documented on EMR Reaction Allergy Type Onset Date Status lamotrigine Lamictal rash Drug Allergy Activ e fluoxetine PROzac rash Drug Allergy Active fluoxetine FLUoxetine Unknown Drug Allergy Activ e Reason For Referral No Information Medications Medication SIG (Take, Route, Frequency, Duration) Notes Start Date End Date Status lacosamide 150 mg 1 tab(s) orally 2 ti mes a day for 30 day(s) Active hydroCHLOROthiazide 25 mg 1 tab orally o nce a day for 30 day(s) Active methocarbamol 500 mg 2 tabs po orally TI D prn spasm Active levETIRAcetam 1000 mg 2 tabs orally 2 ti mes a day for 30 day(s) Active Vitamin B-12 500 mcg 1 tab orally once a day Active nabumetone 500 mg 1 tab po orally Q12H prn pain; take with food Active acetaminophen 500 mg 1-2 tabs orally donald ry 6 hours, as needed Active cetirizine 10 mg 1 tab orally once a day for 30 day(s) Active atenolol 50 mg 1 tab orally once a day Active fluticasone nasal 50 mcg/inh 2 spray int ranasally once a day Active Social History Tobacco Use: Social History Observation Description Date Details (start date - stop date) Never Smoker NA - NA alcohol Question Answer Notes Did you have a drink containing alcohol in the p ast year? No Points 0 Interpretation Negative Tobacco use: Question Answer Notes : nonsmoker Problems Problem Type SNOMED Code ICD Code Onset Dates Problem Status W/U Status Risk Notes Problem Lumbosacral spondylosis without myelopathy (88929935) Lumbosacral spondylosis without myelopathy (721.3) Active confirmed Problem Displacement of lumbar intervertebral disc without myelopathy (23097082) Lumbar (w/out myelopathy) intervertebral disc disorder (722.10) Active confirmed Problem Spasm (38833965) Muscle spasm (728.85) Active confirmed Problem Scoliosis (086756866) Scoliosis (737.43) Active confirmed Problem Knee pain (71846196) Knee pain (719.46) Active confirmed Problem Limb pain (36765153) Limb pain (729.5) Active confirmed Problem Low back pain (812775119) Low back pain (724.2) Active confirmed Problem Spondylolisthesis (046269422) Spondylolisthesis (756.12) Active confirmed Problem Long-term drug therapy (481642264) LONG-TERM USE MEDS NEC (V58.69) Active confirmed R/O substance abuse Problem Anxiety state (265891928) Anxiety State, other, specified: procedure related (300.09) Active confirmed Problem Displacement of cervical intervertebral disc without myelopathy (27498376) Cervical (w/out myelopathy) intervertebral disc disorder (722.0) Active confirmed Problem Solitary sacroiliitis (680010562) Sacroiliitis (720.2) Active confirmed Problem Cervical spinal stenosis (66603319) Cervical spinal stenosis (723.0) Active confirmed Problem Lumbar spinal stenosis (12659022) Lumbar spinal stenosis (724.02) Active confirmed Problem Cervical spondylosis without myelopathy (493841039) Cervical spondylosis without myelopathy (721.0) Active confirmed Problem Neck pain (05153115) Neck pain (723.1) Active confirmed Problem Solitary sacroiliitis (839387449) Sacroiliitis, not elsewhere classified (M46.1) Active confirmed Problem Low back pain (323220734) Low back pain (M54.5) Active confirmed Problem Lumbosacral spondylosis without myelopathy (47438432) Spondylosis without myelopathy or radiculopathy, lumbar region (M47.816) Active confirmed Problem Pain in right knee (904820200701814) Pain in right knee (M25.561) Active confirmed Problem Anxiety disorder (836328489) Other specified anxiety disorders (F41.8) Active confirmed Problem Acquired spondylolisthesis (434145628) Spondylolisthesis, lumbar region (M43.16) Active confirmed Problem Cervical spondylosis without myelopathy (806732388) Other spondylosis with radiculopathy, cervical region (M47.22) Active confirmed Problem Cervical spondylosis without myelopathy (968277066) Spondylosis without myelopathy or radiculopathy, cervical region (M47.812) Active confirmed Problem Spinal stenosis in cervical region (15456248) Spinal stenosis, cervical region (M48.02) Active confirmed Problem Spinal stenosis of lumbar region (89570753) Spinal stenosis, lumbar region (M48.06) Active confirmed Problem Cervical radiculopathy (91942052) Cervical disc disorder with radiculopathy, unspecified cervical region (M50.10) Active confirmed Problem Cervical disc disorder with radiculopathy (793416907) Cervical disc disorder with radiculopathy, mid-cervical region (M50.12) Active confirmed Problem Cervical disc disorder (844275556) Cervical disc disorder, unspecified, unspecified cervical region (M50.90) Active confirmed Problem Radiculopathy due to lumbar intervertebral disc disorder (679689068807145) Intervertebral disc disorders with radiculopathy, lumbar region (M51.16) Active confirmed Problem Cervicalgia (85192578) Cervicalgia (M54.2) Active confirmed Problem Myalgia (66082450) Myalgia (M79.1) Active confi rmed Problem Long-term current use of drug therapy (492511607) Other long filler cigar roller machine (current) drug therapy (Z79.899) Active confirmed Problem Neurogenic claudication (943635980) Spinal stenosis, lumbar region with neurogenic claudication (M48.062) Active confirmed Problem Muscle pain (98432426) Myalgia, other site (M79.18) Active confirmed Problem Pain in lumbar spine (279119934) Vertebrogenic low back pain (M54.51) Active confirmed Vital Signs Temperature 97.7 degrees Fahrenheit 12/22/2023 Oximetry 98 % 12/22/2023 Blood pressure diastolic 79 mm Hg 12/22/2023 Height 65 in 12/22/2023 Blood pressure systolic 158 mm Hg 12/22/2023 Weight 130.4 lbs 12/22/2023 BMI 21.70 kg/m2 12/22/2023 Encounters Encounter Location Date Provider Diagnosis [facility] [address] [place], [place] [id number] 12/22/2023 Jerry Blas Other specified anxiety disorders F41.8 ; Sacroiliitis, not elsewhere classified M46.1 ; Spondylosis without myelopathy or radiculopathy, lumbar region M47.816 ; Vertebrogenic low back pain M54.51 and Other long filler cigar roller machine (current) drug therapy Z79.899 [facility] [address] [place] [id number] 01/30/2024 Jerry Blas Sacroiliitis, not elsewhere classified M46.1 and Other specified anxiety disorders F41.8 [facility] [address] [place] [address] 02/20/2024 Jerry Blas Sacroiliitis, not elsewhere classified M46.1 and Other specified anxiety disorders F41.8 [facility] [address] [place], [place] [phone] 01/31/2024 Jerry Blas Other specified anxiety disorders F41.8 and Sacroiliitis, not elsewhere classified M46.1 [facility] [address] [place], [place] [id number] 03/05/2024 Jerry Blas Assessments Encounter Date Diagnosis (ICD Code) Assessment Notes Treatment Notes Treatment Clinical Notes Section Notes 12/22/2023 Sacroiliitis, not elsewhere classified (ICD-10 - M46.1) Prior left sacral RFA procedure with history of maintained efficacy to include long - term resolution of left sacral pain and LLE sciatica. Patient stated understanding that Medicare will not cover another sacral RFA procedure as per Medicare's updated LCDs. Prior right SI joint steroid injection with history of maintained efficacy to include long - term resolution of right sacral pain and RLE pain / sciatica for 12 years as per updated patient report: the benefits waned about 3-4 weeks ago. Plan right SI joint local anesthetic injection (NO STEROID). Consider right SI joint steroid injection if diagnostic block noted. Risks, benefits, and alternatives reviewed with patient. Questions answered to the patient's reported satisfaction. Preparation for procedure reviewed with patient; printed instructions declined. 12/22/2023 Other specified anxiety disorders (ICD-10 - F41.8) Patient requests no IV sedation for upcoming right SI joint procedure(s). 01/30/2024 Sacroiliitis, not elsewhere classified (ICD-10 - M46.1) Plan right SI joint local anesthetic injection (NO STEROID). 01/30/2024 Other specified anxiety disorders (ICD-10 - F41.8) Patient requests no IV sedation. 02/20/2024 Sacroiliitis, not elsewhere classified (ICD-10 - M46.1) Plan right SI joint local anesthetic / steroid injection. 02/20/2024 Other specified anxiety disorders (ICD-10 - F41.8) Patient requests no IV sedation. 01/31/2024 Other specified anxiety disorders (ICD-10 - F41.8) Patient requests no IV / no IV sedation for procedure. 01/31/2024 Sacroiliitis, not elsewhere classified (ICD-10 - M46.1) Right SI joint local anesthetic injection with diagnostic efficacy appreciated. Plan right SI joint steroid injection. Risks, benefits, and alternatives reviewed with patient at prior office visit. Questions answered to the patient's reported satisfaction. Preparation for procedure reviewed with patient by phone. 12/22/2023 Spondylosis without myelopathy or radiculopathy, lumbar region (ICD-10 - M47.816) Multiple prior lower lumbar RFA procedures with history of maintained efficacy and resolution of lumbar pain; patient reports no lumbar pain as of 12/22/23. 12/22/2023 Vertebrogenic low back pain (ICD-10 - M54.51) History of chronic lumbosacral spine pain. 12/22/2023 Other long filler cigar roller machine (current) drug therapy (ICD-10 - Z79.899) Patient was given a copy of the Treatment Agreement, signed by patient on 11/22/21. Opioid Risk Tool score 0 - low risk. Patient has never requested opioid therapy. 01/31/2024 Other 12/22/2023 Other Pateint reports seeing Dr. Villalba for left leg length discrepency - he has ordered orthotics, however, she has not received them to date. Plan Of Treatment No Information Insurance Providers Payer Name Payer Address Payer Phone Subscriber Number Group Number Insured Name Patient Relationship to Insured Coverage Start Date Coverage End Date [employer] Medicare Part B Claims Department [address] [address] [place] [address] [id number] Marisa Car Self - patient is the insured [place] [address] [place] [id number] Joceline Marisa Self - patient is the insured Medical (General) History Medical History History ICD Code Chronic pain Low back pain Spondylosis of lumbar region without mye lopathy or radiculopathy Lumbar spinal stenosis Sacroiliitis Scoliosis Neck pain Cervical disc disorder / his tory of cevical surgery / history of efficacious cervical spine injection therapy Allergic rhinitis Hypertension Hypercholesterolemia Seizure disorder / epilepsy 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 Castillo, 0 07/26/11 C4-T1 fusion, performed at [facility] by Dr. Hawk Whitehead, 2019 Hospitalization History Reason Date(Month/Year) Seizures - as a child Medication adjustment, 2004
--- OUTSIDE RECORDS SUMMARY | 2024-11-08 17:04 | XMS_ITS | Continuity of Care Document ---
Author Organization [facility] ([facility]) Address [address] [place] [address] Insurance Providers Payer Plan Claims Address Claims Phone Policy Number Group Number Relation Employer Guarantor Name Guarantor Guarantor Address Guarantor Phone [employer] Claims Departme , [address] [address], [place] [address] tel:[phone] [id number] [address]isa [id number], [place] [id number] [facility] MED[facility] A[facility] [address], [place] [address] tel:[phone] Self Marisa [address] 1955 [id number], [place] [id number] Problems Condition ICD9 code ICD10 code SNOMED code Start Date End Date S tatus Encounter for other orthopedic aftercare Z47.89 06/29/2024 Acti ve Arthrodesis status Z98.1 06/29/2024 Ac tive Fusion of spine, cervical region M43.22 06/29/2024 Active Osteophyte, vertebrae M25.78 06/29/2024 Active Scoliosis, unspecified M41.9 06/29/2024 Active Other spondylosis with myelopathy, 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 06/29/2024 Active Other intervertebral disc degeneration, 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 06/29/2024 Activ e History of falling Z91.81 06/29/2024 Ac tive Need for assistance with personal care Z74.1 07/02/2024 Active Muscle weakness (generalized) M62.81 07/02/2024 Active Difficulty in walking, not elsewhere classified R26.2 07/02/2024 Active Contracture of muscle, multiple sites M62.49 06/29/2024 Active meterman (current) use of non-steroidal anti-inflammatories (NSAID) Z79.1 06/29/2024 Active Essential (primary) hypertension I10 06/29/2024 Active Epilepsy, unspecified, not intractable, without status epilepticus G40.909 06/29/2024 Active Polyneuropathy, unspecified G62.9 06/29/2024 Active Non-pressure chronic ulcer of back with unspecified severity L98.429 06/29/2024 Acti ve Results Test Result Date/Time Value / Unit Interp. Refere nce Range Tuberculosis reaction wheal[ 84224-2] Tuberculosis reaction wheal [21988-4] 07/07/2024 09:05 AM 0 mm NEG Tuberculosis reaction wheal[ 13614-1] Tuberculosis reaction wheal [26977-8] 07/07/2024 09:05 AM See note TB test Tuberculosis reaction wheal[ 48122-7] Tuberculosis reaction wheal [14717-0] 06/29/2024 03:51 PM 0 mm NEG Allergies, adverse reactions, alerts Substance Reaction Date Status Type fluoxetine 06/28/2024 Non Drug lamotrigine 06/28/2024 Non Drug Pollen 06/28/2024 Non Drug Immunizations Vaccine Route Date Status COVID-19 Vaccine Unassigned Route of Administration Refused Influenza Vaccine Unassigned Route of Administration 1 Completed Medications Medication Instructions Route Dosage Frequency Start Date Stop Date Indications Status atenolol 50 mg tablet (atenolol) 1 tab, oral, Once A Day oral 1.0 1.0 d 07/02 Active Dulcolax (bisacodyl) (bisacodyl) 10 mg suppository (Dulcolax (bisacodyl) (bisacodyl)) 1 suppository, rectal, Once A Day - PRN, Give rectally if can't take p/o, if no results from MOM rectal 1.0 1.0 d 08/18 Active hydrochlorothia zide 25 mg tablet (hydrochlorothi azide) 1 tab, oral, Once A Day oral 1.0 1.0 d 08/18 Active hydrocodone-connor taminophen 5-325 mg tablet (hydrocodone-ac etaminophen) 1 tab, oral, Twice A Day - PRN, one tab BID PRN x2 weeks oral 1.0 12.0 h 07/13 Active lacosamide 150 mg tablet (lacosamide) 1 tab, oral, Twice A Day, exempt G40.909 oral 1.0 12.0 h 08/18 Active levetiracetam 1,000 mg tablet (levetiracetam) 2 tabs (2000 mg), oral, Twice A Day oral 1.0 12.0 h 08/18 Active methocarbamol 1,000 mg tablet (methocarbamol) 1 tab, oral, Three Times A Day oral 1.0 8.0 h 07/04 Active nabumetone 500 mg tablet (nabumetone) 1 tab, oral, Twice A Day oral 1.0 12.0 h 08/18 Active prednisone 20 mg tablet (prednisone) 3 tabs (60 mg), oral, Once A Day, give for 3 days, taper dose oral 1.0 1.0 d 07/02 Active Tylenol (acetaminophen) 325 mg tablet (Tylenol (acetaminophen) ) 2 tabs/650mg, oral, Every 6 Hours - PRN, as needed for PRN pain/increase d tempMay give rectally if necessary oral 1.0 6.0 h 08/18 Active Tubersol (tuberculin ppd) 5 tub. unit /0.1 mL solution (Tubersol (tuberculin ppd)) 0.1ml, intradermal, Once - One Time, Administer the morning after admission intraderma l 1.0 06/29 Active atenolol 25 mg tablet (atenolol) 1, oral, Once A Day oral 1.0 1.0 d 08/18 Active prednisone 20 mg tablet (prednisone) 2 tabs (40 mg), oral, Once A Day, give for 2 days, taper dose oral 1.0 1.0 d 07/04 Active methocarbamol 500 mg tablet (methocarbamol) 2 tabs (1000mg), oral, Three Times A Day oral 1.0 8.0 h 08/18 Active prednisone 20 mg tablet (prednisone) 1 tab, oral, Once A Day, give for 2 days oral 1.0 1.0 d 07/06 Active Tubersol (tuberculin ppd) 5 tub. unit /0.1 mL solution (Tubersol (tuberculin ppd)) 0.1ml, intradermal, Once - One Time, Administer on the day shift intraderma l 1.0 07/07 Active hydrocodone-connor taminophen 5-325 mg tablet (hydrocodone-ac etaminophen) 1 tab, oral, Twice A Day - PRN, one tab BID PRN x2 weeks oral 1.0 12.0 h 08/06 Active hydrocodone-connor taminophen 5-325 mg tablet (hydrocodone-ac etaminophen) 1 tab, oral, Twice A Day - PRN, one tab BID PRN x2 weeks oral 1.0 12.0 h 07/23 Active hydrocodone-connor taminophen 5-325 mg tablet (hydrocodone-ac etaminophen) 1 tab, oral, Twice A Day - PRN, one tab BID PRN x2 weeks oral 1.0 12.0 h 07/23 Active hydrocodone-connor taminophen 5-325 mg tablet (hydrocodone-ac etaminophen) 1, oral, Every 6 Hours - PRN, Clinical Indication: Pain oral 1.0 6.0 h 08/18 Active hydrocodone-connor taminophen 5-325 mg tablet (hydrocodone-ac etaminophen) 1 tab, oral, Twice A Day - PRN, one tab BID PRN x2 weeks oral 1.0 12.0 h 08/18 Active prednisone 20 mg tablet (prednisone) 3 tabs (60 mg), oral, Once A Day, give for 3 days, taper dose oral 1.0 1.0 d 08/18 Active prednisone 20 mg tablet (prednisone) 2 tabs (40 mg), oral, Once A Day, give for 2 days, taper dose oral 1.0 1.0 d 08/18 Active prednisone 20 mg tablet (prednisone) 1 tab, oral, Once A Day, give for 2 days oral 1.0 1.0 d 08/18 Active Tubersol (tuberculin ppd) 5 tub. unit /0.1 mL solution (Tubersol (tuberculin ppd)) 0.1ml, intradermal, Once - One Time, Administer the morning after admission intraderma l 1.0 08/18 Active Tubersol (tuberculin ppd) 5 tub. unit /0.1 mL solution (Tubersol (tuberculin ppd)) 0.1ml, intradermal, Once - One Time, Administer on the day shift intraderma l 1.0 08/18 Active Vital Signs Date Vital Result Comment 06/29/2024 07:48 PM Temperature (8310-5) 99.9 [degF] Oxygen Saturation (58671-8) 97 % Respiratory Rate (9279-1) 18 /min Heart Rate (8867-4) 80 /min Blood Pressure Systolic (8480-6) 128 mm[Hg] Blood Pressure Diastolic (8462-4) 53 mm[Hg] 06/29/2024 04:23 PM Temperature (8310-5) 101.3 [degF] Oxygen Saturation (70458-2) 93 % Respiratory Rate (9279-1) 16 /min Heart Rate (8867-4) 87 /min Blood Pressure Systolic (8480-6) 121 mm[Hg] Blood Pressure Diastolic (8462-4) 75 mm[Hg] 06/29/2024 04:12 PM Body mass index (BMI) [Ratio] (391 56-5) 0.0 kg/m2 Body Weight (97545-0) 128.4 [lb_av] Body Mass Index (48034-1) 22.74 kg/m2 06/30/2024 07:23 PM Temperature (8310-5) 98.7 [degF] Oxygen Saturation (87107-1) 97 % Respiratory Rate (9279-1) 18 /min Heart Rate (8867-4) 73 /min Blood Pressure Systolic (8480-6) 126 mm[Hg] Blood Pressure Diastolic (8462-4) 62 mm[Hg] 06/30/2024 03:21 PM Temperature (8310-5) 98.2 [degF] Oxygen Saturation (75230-5) 95 % Respiratory Rate (9279-1) 18 /min Heart Rate (8867-4) 57 /min Blood Pressure Systolic (8480-6) 136 mm[Hg] Blood Pressure Diastolic (8462-4) 81 mm[Hg] 06/30/2024 03:10 PM Body mass index (BMI) [Ratio] (391 56-5) 0.0 kg/m2 Body Weight (44189-2) 128.2 [lb_av] Body Mass Index (47854-3) 22.71 kg/m2 07/01/2024 07:32 PM Temperature (8310-5) 98.2 [degF] Oxygen Saturation (00409-1) 98 % Respiratory Rate (9279-1) 20 /min Heart Rate (8867-4) 70 /min Blood Pressure Systolic (8480-6) 102 mm[Hg] Blood Pressure Diastolic (8462-4) 58 mm[Hg] 07/01/2024 04:15 PM Body mass index (BMI) [Ratio] (391 56-5) 0.0 kg/m2 Body Weight (87559-0) 128.5 [lb_av] Body Mass Index (15679-1) 22.76 kg/m2 07/02/2024 08:30 PM Temperature (8310-5) 98.6 [degF] Oxygen Saturation (73205-0) 95 % Respiratory Rate (9279-1) 15 /min Heart Rate (8867-4) 77 /min Blood Pressure Systolic (8480-6) 129 mm[Hg] Blood Pressure Diastolic (8462-4) 72 mm[Hg] 07/02/2024 01:04 PM Body Height (8302-2) 63 [in_us] 07/02/2024 12:30 PM Temperature (8310-5) 98 [degF] Oxygen Saturation (99024-6) 97 % Respiratory Rate (9279-1) 19 /min Heart Rate (8867-4) 68 /min Blood Pressure Systolic (8480-6) 119 mm[Hg] Blood Pressure Diastolic (8462-4) 66 mm[Hg] 07/04/2024 12:52 PM Body Weight (43799-5) 134.2 [lb_av ] Body Mass Index (42067-3) 23.77 kg/m2 07/04/2024 10:08 AM Temperature (8310-5) 97.5 [degF] Oxygen Saturation (12820-4) 95 % Respiratory Rate (9279-1) 18 /min Heart Rate (8867-4) 58 /min Blood Pressure Systolic (8480-6) 118 mm[Hg] Blood Pressure Diastolic (8462-4) 71 mm[Hg] 07/03/2024 10:30 PM Temperature (8310-5) 97.4 [degF] Oxygen Saturation (50581-9) 97 % Respiratory Rate (9279-1) 16 /min Heart Rate (8867-4) 68 /min Blood Pressure Systolic (8480-6) 101 mm[Hg] Blood Pressure Diastolic (8462-4) 55 mm[Hg] 07/05/2024 11:02 AM Temperature (8310-5) 97.7 [degF] Oxygen Saturation (59082-2) 98 % Respiratory Rate (9279-1) 16 /min Heart Rate (8867-4) 73 /min Blood Pressure Systolic (8480-6) 134 mm[Hg] Blood Pressure Diastolic (8462-4) 78 mm[Hg] 07/04/2024 10:02 PM Temperature (8310-5) 97 [degF] Oxygen Saturation (30617-0) 99 % Respiratory Rate (9279-1) 18 /min Heart Rate (8867-4) 69 /min Blood Pressure Systolic (8480-6) 130 mm[Hg] Blood Pressure Diastolic (8462-4) 66 mm[Hg] 07/06/2024 10:32 AM Temperature (8310-5) 98.5 [degF] Oxygen Saturation (49027-3) 94 % Respiratory Rate (9279-1) 19 /min Heart Rate (8867-4) 73 /min Blood Pressure Systolic (8480-6) 164 mm[Hg] Blood Pressure Diastolic (8462-4) 84 mm[Hg] 07/06/2024 12:36 AM Temperature (8310-5) 98.1 [degF] Oxygen Saturation (48181-4) 97 % Respiratory Rate (9279-1) 20 /min Heart Rate (8867-4) 78 /min Blood Pressure Systolic (8480-6) 128 mm[Hg] Blood Pressure Diastolic (8462-4) 74 mm[Hg] 07/07/2024 12:16 AM Temperature (8310-5) 98.1 [degF] Oxygen Saturation (19013-4) 95 % Respiratory Rate (9279-1) 18 /min Heart Rate (8867-4) 69 /min Blood Pressure Systolic (8480-6) 146 mm[Hg] Blood Pressure Diastolic (8462-4) 79 mm[Hg] 07/07/2024 01:01 PM Temperature (8310-5) 97.5 [degF] Oxygen Saturation (95528-1) 99 % Respiratory Rate (9279-1) 19 /min Heart Rate (8867-4) 60 /min Blood Pressure Systolic (8480-6) 114 mm[Hg] Blood Pressure Diastolic (8462-4) 62 mm[Hg] 07/08/2024 10:55 AM Temperature (8310-5) 98.2 [degF] Oxygen Saturation (00876-0) 97 % Respiratory Rate (9279-1) 20 /min Heart Rate (8867-4) 67 /min Blood Pressure Systolic (8480-6) 112 mm[Hg] Blood Pressure Diastolic (8462-4) 52 mm[Hg] 07/08/2024 12:59 AM Temperature (8310-5) 97.7 [degF] Oxygen Saturation (43264-5) 98 % Respiratory Rate (9279-1) 20 /min Heart Rate (8867-4) 67 /min Blood Pressure Systolic (8480-6) 108 mm[Hg] Blood Pressure Diastolic (8462-4) 55 mm[Hg] 07/08/2024 11:22 PM Temperature (8310-5) 98 [degF] Oxygen Saturation (52937-5) 96 % Respiratory Rate (9279-1) 18 /min Heart Rate (8867-4) 76 /min Blood Pressure Systolic (8480-6) 127 mm[Hg] Blood Pressure Diastolic (8462-4) 64 mm[Hg] 07/09/2024 07:42 PM Temperature (8310-5) 98.6 [degF] Oxygen Saturation (02920-1) 98 % Respiratory Rate (9279-1) 20 /min Heart Rate (8867-4) 80 /min Blood Pressure Systolic (8480-6) 120 mm[Hg] Blood Pressure Diastolic (8462-4) 70 mm[Hg] 07/09/2024 09:13 AM Temperature (8310-5) 98.6 [degF] Oxygen Saturation (76360-6) 97 % Respiratory Rate (9279-1) 16 /min Heart Rate (8867-4) 85 /min Blood Pressure Systolic (8480-6) 115 mm[Hg] Blood Pressure Diastolic (8462-4) 37 mm[Hg] 07/10/2024 09:22 AM Temperature (8310-5) 98.1 [degF] Oxygen Saturation (20637-5) 97 % Respiratory Rate (9279-1) 16 /min Heart Rate (8867-4) 65 /min Blood Pressure Systolic (8480-6) 132 mm[Hg] Blood Pressure Diastolic (8462-4) 72 mm[Hg] 07/10/2024 09:38 PM Temperature (8310-5) 97.4 [degF] Oxygen Saturation (11372-8) 98 % Respiratory Rate (9279-1) 16 /min Heart Rate (8867-4) 66 /min Blood Pressure Systolic (8480-6) 105 mm[Hg] Blood Pressure Diastolic (8462-4) 56 mm[Hg] 07/11/2024 09:19 PM Temperature (8310-5) 97.2 [degF] Oxygen Saturation (42082-1) 99 % Respiratory Rate (9279-1) 18 /min Heart Rate (8867-4) 73 /min Blood Pressure Systolic (8480-6) 117 mm[Hg] Blood Pressure Diastolic (8462-4) 63 mm[Hg] 07/11/2024 11:07 AM Body Weight (92038-8) 131.4 [lb_av ] Body Mass Index (28834-0) 23.27 kg/m2 07/11/2024 08:52 AM Temperature (8310-5) 98 [degF] Oxygen Saturation (37684-8) 97 % Respiratory Rate (9279-1) 17 /min Heart Rate (8867-4) 70 /min Blood Pressure Systolic (8480-6) 119 mm[Hg] Blood Pressure Diastolic (8462-4) 73 mm[Hg] 07/12/2024 08:42 PM Temperature (8310-5) 97.7 [degF] Oxygen Saturation (45029-8) 98 % Respiratory Rate (9279-1) 18 /min Heart Rate (8867-4) 70 /min Blood Pressure Systolic (8480-6) 107 mm[Hg] Blood Pressure Diastolic (8462-4) 58 mm[Hg] 07/13/2024 10:11 PM Temperature (8310-5) 98.3 [degF] Oxygen Saturation (96027-5) 96 % Respiratory Rate (9279-1) 18 /min Heart Rate (8867-4) 65 /min Blood Pressure Systolic (8480-6) 119 mm[Hg] Blood Pressure Diastolic (8462-4) 68 mm[Hg] 07/13/2024 08:39 AM Temperature (8310-5) 97.5 [degF] Oxygen Saturation (38933-9) 95 % Respiratory Rate (9279-1) 20 /min Heart Rate (8867-4) 70 /min Blood Pressure Systolic (8480-6) 107 mm[Hg] Blood Pressure Diastolic (8462-4) 71 mm[Hg] 07/14/2024 08:12 AM Temperature (8310-5) 98 [degF] Oxygen Saturation (63657-1) 98 % Respiratory Rate (9279-1) 18 /min Heart Rate (8867-4) 68 /min Blood Pressure Systolic (8480-6) 124 mm[Hg] Blood Pressure Diastolic (8462-4) 76 mm[Hg] 07/15/2024 08:08 AM Temperature (8310-5) 98 [degF] Oxygen Saturation (32037-0) 98 % Respiratory Rate (9279-1) 20 /min Heart Rate (8867-4) 68 /min Blood Pressure Systolic (8480-6) 122 mm[Hg] Blood Pressure Diastolic (8462-4) 70 mm[Hg] 07/14/2024 10:39 PM Body Weight (30368-3) 131.6 [lb_av ] Body Mass Index (74185-6) 23.31 kg/m2 07/14/2024 10:06 PM Temperature (8310-5) 98.2 [degF] Oxygen Saturation (42673-3) 97 % Respiratory Rate (9279-1) 18 /min Heart Rate (8867-4) 65 /min Blood Pressure Systolic (8480-6) 119 mm[Hg] Blood Pressure Diastolic (8462-4) 75 mm[Hg] 07/15/2024 11:42 PM Temperature (8310-5) 98.3 [degF] Oxygen Saturation (56339-7) 97 % Respiratory Rate (9279-1) 18 /min Heart Rate (8867-4) 72 /min Blood Pressure Systolic (8480-6) 129 mm[Hg] Blood Pressure Diastolic (8462-4) 74 mm[Hg] 07/16/2024 07:40 PM Temperature (8310-5) 97.2 [degF] Oxygen Saturation (05925-5) 98 % Respiratory Rate (9279-1) 20 /min Heart Rate (8867-4) 80 /min Blood Pressure Systolic (8480-6) 120 mm[Hg] Blood Pressure Diastolic (8462-4) 80 mm[Hg] 07/16/2024 09:13 AM Temperature (8310-5) 98.3 [degF] Oxygen Saturation (86829-2) 97 % Respiratory Rate (9279-1) 16 /min Heart Rate (8867-4) 77 /min Blood Pressure Systolic (8480-6) 104 mm[Hg] Blood Pressure Diastolic (8462-4) 59 mm[Hg] 07/18/2024 10:04 AM Body Weight (74693-7) 133.4 [lb_av ] Body Mass Index (08601-4) 23.63 kg/m2 07/18/2024 09:36 AM Temperature (8310-5) 98.3 [degF] Oxygen Saturation (19067-3) 97 % Respiratory Rate (9279-1) 16 /min Heart Rate (8867-4) 75 /min Blood Pressure Systolic (8480-6) 142 mm[Hg] Blood Pressure Diastolic (8462-4) 77 mm[Hg] 07/17/2024 09:30 PM Temperature (8310-5) 97.1 [degF] Oxygen Saturation (18108-7) 98 % Respiratory Rate (9279-1) 18 /min Heart Rate (8867-4) 76 /min Blood Pressure Systolic (8480-6) 132 mm[Hg] Blood Pressure Diastolic (8462-4) 70 mm[Hg] 07/17/2024 03:40 PM Temperature (8310-5) 98.1 [degF] Oxygen Saturation (03072-9) 96 % Respiratory Rate (9279-1) 16 /min Heart Rate (8867-4) 81 /min Blood Pressure Systolic (8480-6) 131 mm[Hg] Blood Pressure Diastolic (8462-4) 75 mm[Hg] 07/19/2024 11:20 AM Temperature (8310-5) 97.8 [degF] Oxygen Saturation (11864-4) 99 % Respiratory Rate (9279-1) 18 /min Heart Rate (8867-4) 70 /min Blood Pressure Systolic (8480-6) 132 mm[Hg] Blood Pressure Diastolic (8462-4) 68 mm[Hg] 07/18/2024 08:14 PM Temperature (8310-5) 97.4 [degF] Oxygen Saturation (72197-9) 98 % Respiratory Rate (9279-1) 18 /min Heart Rate (8867-4) 72 /min Blood Pressure Systolic (8480-6) 126 mm[Hg] Blood Pressure Diastolic (8462-4) 70 mm[Hg] 07/20/2024 09:38 AM Temperature (8310-5) 97.8 [degF] Oxygen Saturation (95171-9) 96 % Respiratory Rate (9279-1) 16 /min Heart Rate (8867-4) 66 /min Blood Pressure Systolic (8480-6) 118 mm[Hg] Blood Pressure Diastolic (8462-4) 65 mm[Hg] 07/19/2024 10:09 PM Temperature (8310-5) 98 [degF] Oxygen Saturation (31145-0) 7 % Respiratory Rate (9279-1) 18 /min Heart Rate (8867-4) 68 /min Blood Pressure Systolic (8480-6) 126 mm[Hg] Blood Pressure Diastolic (8462-4) 66 mm[Hg] 07/21/2024 12:49 AM Temperature (8310-5) 98 [degF] Oxygen Saturation (15500-0) 95 % Respiratory Rate (9279-1) 18 /min Heart Rate (8867-4) 63 /min Blood Pressure Systolic (8480-6) 116 mm[Hg] Blood Pressure Diastolic (8462-4) 68 mm[Hg] 07/21/2024 08:13 AM Temperature (8310-5) 97.8 [degF] Oxygen Saturation (01230-2) 98 % Respiratory Rate (9279-1) 18 /min Heart Rate (8867-4) 64 /min Blood Pressure Systolic (8480-6) 122 mm[Hg] Blood Pressure Diastolic (8462-4) 69 mm[Hg] 07/22/2024 10:07 AM Temperature (8310-5) 98.1 [degF] Oxygen Saturation (64178-9) 98 % Respiratory Rate (9279-1) 18 /min Heart Rate (8867-4) 74 /min Blood Pressure Systolic (8480-6) 116 mm[Hg] Blood Pressure Diastolic (8462-4) 66 mm[Hg] 07/21/2024 11:34 PM Temperature (8310-5) 97.8 [degF] Oxygen Saturation (29474-3) 97 % Respiratory Rate (9279-1) 20 /min Heart Rate (8867-4) 76 /min Blood Pressure Systolic (8480-6) 115 mm[Hg] Blood Pressure Diastolic (8462-4) 64 mm[Hg] 07/22/2024 10:45 PM Temperature (8310-5) 98.5 [degF] Oxygen Saturation (75925-5) 97 % Respiratory Rate (9279-1) 18 /min Heart Rate (8867-4) 69 /min Blood Pressure Systolic (8480-6) 119 mm[Hg] Blood Pressure Diastolic (8462-4) 69 mm[Hg] 07/23/2024 08:18 PM Temperature (8310-5) 98.4 [degF] Oxygen Saturation (35068-0) 99 % Respiratory Rate (9279-1) 20 /min Heart Rate (8867-4) 77 /min Blood Pressure Systolic (8480-6) 128 mm[Hg] Blood Pressure Diastolic (8462-4) 62 mm[Hg] 07/23/2024 10:46 AM Temperature (8310-5) 98 [degF] Oxygen Saturation (79538-2) 97 % Respiratory Rate (9279-1) 18 /min Heart Rate (8867-4) 70 /min Blood Pressure Systolic (8480-6) 120 mm[Hg] Blood Pressure Diastolic (8462-4) 64 mm[Hg] 07/24/2024 10:11 AM Temperature (8310-5) 97.7 [degF] Oxygen Saturation (66323-9) 98 % Respiratory Rate (9279-1) 15 /min Heart Rate (8867-4) 68 /min Blood Pressure Systolic (8480-6) 118 mm[Hg] Blood Pressure Diastolic (8462-4) 68 mm[Hg] 07/24/2024 07:29 PM Temperature (8310-5) 98.2 [degF] Oxygen Saturation (60670-2) 98 % Respiratory Rate (9279-1) 20 /min Heart Rate (8867-4) 79 /min Blood Pressure Systolic (8480-6) 114 mm[Hg] Blood Pressure Diastolic (8462-4) 57 mm[Hg] 07/25/2024 11:02 AM Temperature (8310-5) 97.7 [degF] Respiratory Rate (9279-1) 17 /min Heart Rate (8867-4) 82 /min Blood Pressure Systolic (8480-6) 136 mm[Hg] Blood Pressure Diastolic (8462-4) 83 mm[Hg] 07/25/2024 02:23 PM Temperature (8310-5) 97.6 [degF] Respiratory Rate (9279-1) 16 /min Heart Rate (8867-4) 93 /min Blood Pressure Systolic (8480-6) 127 mm[Hg] Blood Pressure Diastolic (8462-4) 83 mm[Hg] 07/25/2024 02:33 PM Body Weight (52700-5) 134.5 [lb_av ] Body Mass Index (27777-1) 23.82 kg/m2 07/25/2024 02:22 PM Temperature (8310-5) 97.6 [degF] Respiratory Rate (9279-1) 16 /min Heart Rate (8867-4) 98 /min Blood Pressure Systolic (8480-6) 122 mm[Hg] Blood Pressure Diastolic (8462-4) 81 mm[Hg] 07/25/2024 04:45 PM Temperature (8310-5) 97.7 [degF] Respiratory Rate (9279-1) 16 /min Heart Rate (8867-4) 90 /min Blood Pressure Systolic (8480-6) 129 mm[Hg] Blood Pressure Diastolic (8462-4) 82 mm[Hg] 07/25/2024 10:38 AM Temperature (8310-5) 97.4 [degF] Oxygen Saturation (45634-3) 98 % Respiratory Rate (9279-1) 16 /min Heart Rate (8867-4) 74 /min Blood Pressure Systolic (8480-6) 109 mm[Hg] Blood Pressure Diastolic (8462-4) 70 mm[Hg] 07/25/2024 07:58 PM Temperature (8310-5) 97.9 [degF] Respiratory Rate (9279-1) 20 /min Heart Rate (8867-4) 83 /min Blood Pressure Systolic (8480-6) 107 mm[Hg] Blood Pressure Diastolic (8462-4) 60 mm[Hg] 07/25/2024 07:40 PM Temperature (8310-5) 97 [degF] Respiratory Rate (9279-1) 20 /min Heart Rate (8867-4) 88 /min Blood Pressure Systolic (8480-6) 106 mm[Hg] Blood Pressure Diastolic (8462-4) 60 mm[Hg] 07/26/2024 08:01 PM Temperature (8310-5) 98 [degF] Oxygen Saturation (39366-0) 98 % Respiratory Rate (9279-1) 20 /min Heart Rate (8867-4) 70 /min Blood Pressure Systolic (8480-6) 141 mm[Hg] Blood Pressure Diastolic (8462-4) 91 mm[Hg] 07/27/2024 11:17 AM Temperature (8310-5) 97.3 [degF] Oxygen Saturation (53556-4) 97 % Respiratory Rate (9279-1) 18 /min Heart Rate (8867-4) 70 /min Blood Pressure Systolic (8480-6) 104 mm[Hg] Blood Pressure Diastolic (8462-4) 54 mm[Hg] 07/28/2024 12:55 AM Temperature (8310-5) 98 [degF] Oxygen Saturation (64179-2) 96 % Respiratory Rate (9279-1) 20 /min Heart Rate (8867-4) 78 /min Blood Pressure Systolic (8480-6) 129 mm[Hg] Blood Pressure Diastolic (8462-4) 67 mm[Hg] 07/28/2024 08:31 AM Temperature (8310-5) 97.4 [degF] Oxygen Saturation (69315-6) 96 % Respiratory Rate (9279-1) 17 /min Heart Rate (8867-4) 66 /min Blood Pressure Systolic (8480-6) 127 mm[Hg] Blood Pressure Diastolic (8462-4) 74 mm[Hg] 07/28/2024 08:24 PM Temperature (8310-5) 98 [degF] Oxygen Saturation (75750-1) 95 % Respiratory Rate (9279-1) 18 /min Heart Rate (8867-4) 72 /min Blood Pressure Systolic (8480-6) 125 mm[Hg] Blood Pressure Diastolic (8462-4) 69 mm[Hg] 07/29/2024 12:11 PM Temperature (8310-5) 97.7 [degF] Oxygen Saturation (89405-2) 96 % Respiratory Rate (9279-1) 16 /min Heart Rate (8867-4) 71 /min Blood Pressure Systolic (8480-6) 131 mm[Hg] Blood Pressure Diastolic (8462-4) 81 mm[Hg] 07/29/2024 07:36 PM Temperature (8310-5) 98 [degF] Oxygen Saturation (94567-5) 97 % Respiratory Rate (9279-1) 18 /min Heart Rate (8867-4) 74 /min Blood Pressure Systolic (8480-6) 143 mm[Hg] Blood Pressure Diastolic (8462-4) 79 mm[Hg] 07/30/2024 09:55 AM Temperature (8310-5) 97.6 [degF] Oxygen Saturation (52422-5) 97 % Respiratory Rate (9279-1) 18 /min Heart Rate (8867-4) 77 /min Blood Pressure Systolic (8480-6) 123 mm[Hg] Blood Pressure Diastolic (8462-4) 74 mm[Hg] 07/30/2024 08:26 PM Temperature (8310-5) 97.1 [degF] Oxygen Saturation (55183-3) 97 % Respiratory Rate (9279-1) 21 /min Heart Rate (8867-4) 69 /min Blood Pressure Systolic (8480-6) 122 mm[Hg] Blood Pressure Diastolic (8462-4) 60 mm[Hg] 07/31/2024 07:07 AM Temperature (8310-5) 97.4 [degF] Oxygen Saturation (22426-9) 97 % Respiratory Rate (9279-1) 16 /min Heart Rate (8867-4) 66 /min Blood Pressure Systolic (8480-6) 116 mm[Hg] Blood Pressure Diastolic (8462-4) 64 mm[Hg] 08/01/2024 09:05 AM Temperature (8310-5) 97.8 [degF] Oxygen Saturation (44413-0) 98 % Respiratory Rate (9279-1) 16 /min Heart Rate (8867-4) 75 /min Blood Pressure Systolic (8480-6) 122 mm[Hg] Blood Pressure Diastolic (8462-4) 72 mm[Hg] 07/31/2024 09:43 PM Temperature (8310-5) 97.2 [degF] Oxygen Saturation (93718-1) 97 % Respiratory Rate (9279-1) 18 /min Heart Rate (8867-4) 65 /min Blood Pressure Systolic (8480-6) 107 mm[Hg] Blood Pressure Diastolic (8462-4) 68 mm[Hg] 08/01/2024 07:13 PM Temperature (8310-5) 97.1 [degF] Oxygen Saturation (94910-7) 97 % Respiratory Rate (9279-1) 18 /min Heart Rate (8867-4) 73 /min Blood Pressure Systolic (8480-6) 118 mm[Hg] Blood Pressure Diastolic (8462-4) 66 mm[Hg] 08/02/2024 07:04 AM Temperature (8310-5) 97.3 [degF] Oxygen Saturation (00335-2) 94 % Respiratory Rate (9279-1) 16 /min Heart Rate (8867-4) 60 /min Blood Pressure Systolic (8480-6) 118 mm[Hg] Blood Pressure Diastolic (8462-4) 66 mm[Hg] 08/02/2024 08:03 PM Temperature (8310-5) 97.9 [degF] Oxygen Saturation (27541-8) 95 % Respiratory Rate (9279-1) 18 /min Heart Rate (8867-4) 71 /min Blood Pressure Systolic (8480-6) 122 mm[Hg] Blood Pressure Diastolic (8462-4) 63 mm[Hg] 08/03/2024 12:03 PM Temperature (8310-5) 97.8 [degF] Oxygen Saturation (01270-1) 97 % Respiratory Rate (9279-1) 17 /min Heart Rate (8867-4) 70 /min Blood Pressure Systolic (8480-6) 120 mm[Hg] Blood Pressure Diastolic (8462-4) 60 mm[Hg] 08/03/2024 10:47 PM Temperature (8310-5) 98.3 [degF] Oxygen Saturation (39087-9) 98 % Respiratory Rate (9279-1) 18 /min Heart Rate (8867-4) 67 /min Blood Pressure Systolic (8480-6) 118 mm[Hg] Blood Pressure Diastolic (8462-4) 63 mm[Hg] 08/04/2024 08:52 AM Oxygen Saturation (46140-2) 97 % Respiratory Rate (9279-1) 16 /min Blood Pressure Systolic (8480-6) 121 mm[Hg] Blood Pressure Diastolic (8462-4) 62 mm[Hg] 08/04/2024 08:50 AM Temperature (8310-5) 97.4 [degF] Heart Rate (8867-4) 76 /min 08/04/2024 10:28 PM Temperature (8310-5) 98 [degF] Oxygen Saturation (80103-4) 96 % Respiratory Rate (9279-1) 18 /min Heart Rate (8867-4) 71 /min Blood Pressure Systolic (8480-6) 128 mm[Hg] Blood Pressure Diastolic (8462-4) 65 mm[Hg] 08/05/2024 09:26 AM Temperature (8310-5) 97.3 [degF] Oxygen Saturation (76114-1) 95 % Respiratory Rate (9279-1) 17 /min Heart Rate (8867-4) 86 /min Blood Pressure Systolic (8480-6) 143 mm[Hg] Blood Pressure Diastolic (8462-4) 78 mm[Hg] 08/05/2024 09:02 PM Temperature (8310-5) 98.4 [degF] Oxygen Saturation (35806-7) 98 % Respiratory Rate (9279-1) 16 /min Heart Rate (8867-4) 73 /min Blood Pressure Systolic (8480-6) 112 mm[Hg] Blood Pressure Diastolic (8462-4) 65 mm[Hg] 08/06/2024 09:33 AM Temperature (8310-5) 98 [degF] Oxygen Saturation (98970-6) 93 % Respiratory Rate (9279-1) 16 /min Heart Rate (8867-4) 67 /min Blood Pressure Systolic (8480-6) 132 mm[Hg] Blood Pressure Diastolic (8462-4) 77 mm[Hg] 08/06/2024 07:54 PM Temperature (8310-5) 98.2 [degF] Oxygen Saturation (25536-0) 96 % Respiratory Rate (9279-1) 21 /min Heart Rate (8867-4) 69 /min Blood Pressure Systolic (8480-6) 128 mm[Hg] Blood Pressure Diastolic (8462-4) 62 mm[Hg] 08/07/2024 05:06 PM Temperature (8310-5) 98 [degF] Oxygen Saturation (76458-5) 97 % Respiratory Rate (9279-1) 18 /min Heart Rate (8867-4) 74 /min Blood Pressure Systolic (8480-6) 121 mm[Hg] Blood Pressure Diastolic (8462-4) 67 mm[Hg] 08/07/2024 08:54 PM Temperature (8310-5) 97 [degF] Oxygen Saturation (73585-1) 97 % Respiratory Rate (9279-1) 18 /min Heart Rate (8867-4) 72 /min Blood Pressure Systolic (8480-6) 124 mm[Hg] Blood Pressure Diastolic (8462-4) 74 mm[Hg] 08/08/2024 05:21 PM Temperature (8310-5) 97.6 [degF] Oxygen Saturation (58689-3) 98 % Respiratory Rate (9279-1) 18 /min Heart Rate (8867-4) 73 /min Blood Pressure Systolic (8480-6) 124 mm[Hg] Blood Pressure Diastolic (8462-4) 66 mm[Hg] 08/08/2024 12:11 PM Body Weight (19835-1) 136.6 [lb_av ] Body Mass Index (13871-4) 24.19 kg/m2 08/08/2024 09:16 PM Temperature (8310-5) 97.1 [degF] Oxygen Saturation (88044-8) 97 % Respiratory Rate (9279-1) 18 /min Heart Rate (8867-4) 75 /min Blood Pressure Systolic (8480-6) 130 mm[Hg] Blood Pressure Diastolic (8462-4) 60 mm[Hg] 08/09/2024 07:26 PM Temperature (8310-5) 97.2 [degF] Oxygen Saturation (94935-4) 99 % Respiratory Rate (9279-1) 18 /min Heart Rate (8867-4) 83 /min Blood Pressure Systolic (8480-6) 115 mm[Hg] Blood Pressure Diastolic (8462-4) 56 mm[Hg] 08/10/2024 08:26 AM Temperature (8310-5) 98.4 [degF] Oxygen Saturation (18433-9) 97 % Respiratory Rate (9279-1) 16 /min Heart Rate (8867-4) 82 /min Blood Pressure Systolic (8480-6) 122 mm[Hg] Blood Pressure Diastolic (8462-4) 60 mm[Hg] 08/10/2024 09:11 PM Temperature (8310-5) 98.5 [degF] Oxygen Saturation (68259-1) 96 % Respiratory Rate (9279-1) 18 /min Heart Rate (8867-4) 73 /min Blood Pressure Systolic (8480-6) 117 mm[Hg] Blood Pressure Diastolic (8462-4) 58 mm[Hg] 08/11/2024 08:47 AM Temperature (8310-5) 97.7 [degF] Oxygen Saturation (05562-4) 95 % Respiratory Rate (9279-1) 18 /min Heart Rate (8867-4) 73 /min Blood Pressure Systolic (8480-6) 129 mm[Hg] Blood Pressure Diastolic (8462-4) 73 mm[Hg] 08/12/2024 04:12 PM Temperature (8310-5) 98 [degF] Oxygen Saturation (95915-9) 96 % Respiratory Rate (9279-1) 20 /min Heart Rate (8867-4) 78 /min Blood Pressure Systolic (8480-6) 132 mm[Hg] Blood Pressure Diastolic (8462-4) 70 mm[Hg] 08/12/2024 09:04 PM Temperature (8310-5) 98.9 [degF] Oxygen Saturation (95155-4) 97 % Respiratory Rate (9279-1) 22 /min Heart Rate (8867-4) 77 /min Blood Pressure Systolic (8480-6) 139 mm[Hg] Blood Pressure Diastolic (8462-4) 89 mm[Hg] 08/13/2024 08:41 AM Temperature (8310-5) 98.7 [degF] Oxygen Saturation (17832-5) 97 % Respiratory Rate (9279-1) 18 /min Heart Rate (8867-4) 72 /min Blood Pressure Systolic (8480-6) 133 mm[Hg] Blood Pressure Diastolic (8462-4) 81 mm[Hg] 08/13/2024 07:24 PM Temperature (8310-5) 97.8 [degF] Oxygen Saturation (40042-5) 98 % Respiratory Rate (9279-1) 21 /min Heart Rate (8867-4) 79 /min Blood Pressure Systolic (8480-6) 125 mm[Hg] Blood Pressure Diastolic (8462-4) 80 mm[Hg] 08/14/2024 08:08 AM Temperature (8310-5) 97.9 [degF] Oxygen Saturation (36671-8) 97 % Respiratory Rate (9279-1) 16 /min Heart Rate (8867-4) 67 /min Blood Pressure Systolic (8480-6) 119 mm[Hg] Blood Pressure Diastolic (8462-4) 70 mm[Hg] 08/14/2024 08:06 AM Body Weight (50376-8) 135.2 [lb_av ] Body Mass Index (07043-7) 23.95 kg/m2 08/14/2024 08:00 PM Temperature (8310-5) 96.9 [degF] Oxygen Saturation (87825-1) 97 % Respiratory Rate (9279-1) 18 /min Heart Rate (8867-4) 77 /min Blood Pressure Systolic (8480-6) 128 mm[Hg] Blood Pressure Diastolic (8462-4) 64 mm[Hg] 08/15/2024 08:56 AM Temperature (8310-5) 96.9 [degF] Oxygen Saturation (34546-9) 97 % Respiratory Rate (9279-1) 18 /min Heart Rate (8867-4) 63 /min Blood Pressure Systolic (8480-6) 129 mm[Hg] Blood Pressure Diastolic (8462-4) 64 mm[Hg] 08/15/2024 09:35 PM Temperature (8310-5) 97 [degF] Oxygen Saturation (91499-0) 96 % Respiratory Rate (9279-1) 18 /min Heart Rate (8867-4) 72 /min Blood Pressure Systolic (8480-6) 123 mm[Hg] Blood Pressure Diastolic (8462-4) 69 mm[Hg] 08/16/2024 09:00 AM Temperature (8310-5) 97.6 [degF] Oxygen Saturation (76125-2) 96 % Respiratory Rate (9279-1) 18 /min Heart Rate (8867-4) 64 /min Blood Pressure Systolic (8480-6) 122 mm[Hg] Blood Pressure Diastolic (8462-4) 68 mm[Hg] 08/16/2024 11:22 PM Temperature (8310-5) 97.9 [degF] Oxygen Saturation (56140-3) 97 % Respiratory Rate (9279-1) 18 /min Heart Rate (8867-4) 65 /min Blood Pressure Systolic (8480-6) 119 mm[Hg] Blood Pressure Diastolic (8462-4) 63 mm[Hg] 08/17/2024 09:03 AM Temperature (8310-5) 97.6 [degF] Oxygen Saturation (47383-9) 96 % Respiratory Rate (9279-1) 17 /min Heart Rate (8867-4) 66 /min Blood Pressure Systolic (8480-6) 131 mm[Hg] Blood Pressure Diastolic (8462-4) 77 mm[Hg] 08/17/2024 07:59 PM Temperature (8310-5) 97.8 [degF] Oxygen Saturation (99802-4) 97 % Respiratory Rate (9279-1) 18 /min Heart Rate (8867-4) 78 /min Blood Pressure Systolic (8480-6) 124 mm[Hg] Blood Pressure Diastolic (8462-4) 72 mm[Hg] Social History No smoking Hx information available Encounters Type CPT Code Date Location Provider Indication s encounter report 06/29/2024 03:2 6 PM - 07/26/2024 09:42 AM Lucas Fischer DO 01 encounter report 06/29/2024 03:2 6 PM - 08/18/2024 11:27 AM Lucas Fischer DO Advance Directives Directive Description Verification Date Supporting Document(s) Other Directive
--- NOTE | 2024-11-08 18:28 | ECG_ITS ---
[employer] [facility] MD Test Date: 2024-11-08 Pat Name: Marisa Car Department: Room: Gender: Female Center Administrator: : [id number] Requested By: Brisa Chandra Order Number: [id number] Reading MD: Measurements Intervals Swiss Rate: 83 P: 79 SD: 183 QRS: 63 QRSD: 97 T: 11 QT: 337 QTc: 396 Interpretive Statements SINUS RHYTHM NONSPECIFIC ST & T-WAVE ABNORMALITY INTERPRETATION BASED ON A DEFAULT AGE OF 40 YEARS No previous ECG available for comparison [email or web address]
--- NOTE | 2024-11-08 18:57 | XRR_ITS ---
PROCEDURE INFORMATION: Exam: XR Chest Exam date and time: 11/08/2024 7:00 PM Age: 69 years old Clinical indication: Injury or trauma; Fall; Blunt trauma (contusions or hematomas); Additional info: Near syncope/collapse TECHNIQUE: Imaging protocol: Radiologic exam of the chest. Views: 1 view. COMPARISON: CR XR cervical spine 3V* [id number] 09/18/2024 8:42 AM FINDINGS: Lungs: No pulmonary edema. No consolidation. Pleural spaces: Unremarkable. No pleural effusion. No pneumothorax. Heart/Mediastinum: Unremarkable. No cardiomegaly. Diaphragm: Chronic elevation of the right hemidiaphragm with interposed bowel loops. Bones/joints: No acute osseous findings. Soft tissues: Indeterminate soft tissue hyperdensity in the left axilla. XR/XR chest 1V portable [id number] IMPRESSION: No acute findings.
--- NOTE | 2024-11-08 18:57 | CTR_ITS ---
PROCEDURE INFORMATION: Exam: CT Cervical Spine Without Contrast Exam date and time: 11/08/2024 7:06 PM Age: 69 years old Clinical indication: Injury or trauma; Fall; Blunt trauma; Additional info: Fall, prior neck surgery TECHNIQUE: Imaging protocol: Computed tomography of the cervical spine without contrast. Radiation optimization: All CT scans at this facility use at least one of these dose optimization techniques: automated exposure control; mA and/or kV adjustment per patient size (includes targeted exams where dose is matched to clinical indication); or iterative reconstruction. COMPARISON: CT cervical spin wo con* [id number] 06/25/2024 9:00 AM RADIATION DOSE METRICS: Total DLP (mGy-cm): 161.6 FINDINGS: Bones/joints: Redemonstration of anterior hardware fixation with plate and screws spanning C4 through C6. Redemonstration of anterior hardware fixation with plate and screws spanning C7 and T1. Stable fractured right T1 screw and stable retained fracture screw within the C5 vertebral body. There has been interval surgery with laminectomies at C2, C3 and C4. Interval posterior spinal hardware fixation spanning C2 through C5. The bilateral C2 pedicle screws cross the upper portions of the transverse foramina. Incomplete fusion of the posterior C1 ring. C2-C3: Spinal canal has been decompressed by laminectomy. Moderate bilateral neuroforaminal narrowing secondary to uncovertebral and facet hypertrophy. C3-C4: Broad-based disc osteophyte complex. The spinal canal has been decompressed by laminectomy. Moderate bilateral neuroforaminal narrowing secondary to uncovertebral and facet hypertrophy. C4-C5: Broad-based disc osteophyte complex. Spinal canal has been decompressed by laminectomy. Moderate bilateral neuroforaminal narrowing secondary to uncovertebral and facet hypertrophy. C5-C6: Broad-based disc osteophyte complex with mild central canal stenosis. Moderate bilateral neuroforaminal narrowing secondary to uncovertebral and facet hypertrophy. C6-C7: Broad-based disc osteophyte complex with mild central canal stenosis. Moderate bilateral neuroforaminal narrowing secondary to uncovertebral and facet hypertrophy. C7-T1: Broad-based disc osteophyte complex with mild central canal stenosis. Moderate to severe bilateral neuroforaminal narrowing secondary to uncovertebral and facet hypertrophy. Lungs: Lung apices are normal. Soft tissues: Visualized soft tissues are unremarkable. CT/CT cervical spin wo con* [id number] IMPRESSION: 1. Postsurgical and multilevel degenerative changes of the cervical spine. No acute bony abnormality. If symptoms persist, consider further evaluation with MRI, if there are no contraindications to obtaining a MRI scan. 2. Bilateral C2 pedicle screws extend along the superior aspect of the bilateral transverse foramina. If there is concern for vertebral artery injury, then recommend further evaluation with CT angiogram.
--- NOTE | 2024-11-08 18:57 | CTR_ITS ---
PROCEDURE INFORMATION: Exam: CT Head Without Contrast Exam date and time: 11/08/2024 7:06 PM Age: 69 years old Clinical indication: Injury or trauma; Fall; Blunt trauma (contusions or hematomas); Without loss of consciousness; Prior surgery; Surgery date: 1-6 months; Surgery type: Cspine; Additional info: Injury, fall, lac to occiput TECHNIQUE: Imaging protocol: Computed tomography of the head without contrast. Radiation optimization: All CT scans at this facility use at least one of these dose optimization techniques: automated exposure control; mA and/or kV adjustment per patient size (includes targeted exams where dose is matched to clinical indication); or iterative reconstruction. COMPARISON: CT head wo con* [id number] 07/26/2024 10:30 AM RADIATION DOSE METRICS: Total DLP (mGy-cm): 1078.4 FINDINGS: Brain: No acute intracranial hemorrhage. No confluent lobar infarct. No mass effect. Cerebral ventricles: The ventricles and sulci are normal in size and shape for the patient's stated age. Paranasal sinuses: No fluid levels. Mastoid air cells: Visualized mastoid air cells are well aerated. Bones: No acute calvarial fracture. Soft tissues: Visualized soft tissues are unremarkable. CT/CT head wo con* [id number] IMPRESSION: No acute intracranial abnormality. If symptoms persist, consider further evaluation with MRI, if there are no contraindications to obtaining a MRI scan.
[2024-11-08 19:29] VITALS: BP 164/89; PULSE 61; O2SAT 94
[2024-11-08 19:30] LABS: Basophils % 0.4 %; Eosinophils % 0.5 %; Hematocrit 36.6 % (36-47); Lymphocytes # 1.8 10^3/uL (0.8-4.8); Lymphocytes % 22.1 %; Mean Corpuscular HGB Conc 33.3 g/dL (30-55); Mean Corpuscular Hemoglobin 31.8 pg (27-33); Mean Corpuscular Volume 95.3 fl (85-98); Mean Platelet Volume 8.7 fL (7.4-10.4); Monocytes # 0.7 10^3/uL (0.2-0.9); Monocytes % 7.9 %; Neutrophils # 5.69 10^3/uL (1.8-7.7); Neutrophils % 68.9 %; Nucleated Red Blood Cells % 0 %; Platelet Count 273 10^3/cmm (157-399); Red Blood Count 3.84 10^6/uL (3.85-5.65); Red Cell Distribution Width 13.2 % (12.1-15.1); White Blood Count 8.25 10^3/uL (3.29-11.43)
--- NOTE | 2024-11-08 19:32 | ED_ITS ---
HPI - Head Injury 2 General: Chief complaint: Head Injury Stated complaint: fell, head injury Time Seen by Provider: 11/08/24 18:33 History of Present Illness: Pt is a well-appearing 69 yr old female with a history of epilepsy and recent neck surgery for a pinched nerve who presents after a fall at home. The patient reports becoming dizzy while washing dishes in a hot environment, with associated numbness in the hands, particularly the right hand, which has been persistent since neck surgery. The patient attempted to hold onto the sink but was unable to due to numbness, resulting in a backward fall and striking the head, possibly on a cabinet or other object. There was scalp bleeding, which was cleaned by a family member. The patient denies increased numbness compared to baseline, denies new neck pain, and reports no other injuries. No history of frequent lightheadedness or recent seizures. The patient lives in an without functioning AC, leading to a hot environment. Denies EtOH use. No other complaints reported. Related Data Home Medications ?Medication ?Instructions ?Recorded ?Confirmed hydrochlorothiazide 25 mg tablet 25 mg PO DAILY 09/18/24 acetaminophen 325 mg tablet 650 mg PO Q6H PRN Pain 04/0909/18/24 (Tylenol) lacosamide 150 mg tablet 150 mg PO BID 05/26/2409/18 levetiracetam 1,000 mg tablet 2,000 mg PO BID 05/26/24 09/18/24 nabumetone 500 mg tablet 500 mg PO BID 05/26/2409/18 methocarbamol 500 mg tablet 1,000 mg PO TID 06/12/24 0 09/18/24 atenolol 25 mg tablet 25 mg PO DAILY 07/26/24 0511/07 Previous Rx's ?Medication ?Instructions ?Recorded hydrocodone 5 mg-acetaminophen 325 1 tab PO Q6H PRN Pa in 7 days #28 08/07/24 mg tablet tabs Allergies Allergy/AdvReac Type Severity Reaction Status Date / Time fluoxetine (From Prozac) Allergy ALGY-Rash Verified 11/08/24 17:10 lamotrigine (From Lamictal) Allergy Unkown Verified 11/08/24 17:10 pollen extracts Allergy Unknown Verified 11/08/24 17:10 PFSH ED 2 PFSH: Medical History Peripheral neuropathy Cervical spondylosis with myelopathy Family History Father Cancer Grandfather Cancer Grandmother Stroke Family/Other Brain cancer Social History Smoking and tobacco/nicotine status: never used tobacco/nicotine Alcohol intake: never Lives independently: Yes Household members: spouse Marital status: Current occupational status: disabled Physical Exam 2 Const: COMMON NORMALS: no acute distress, patient oriented x3 and alert HENMT: COMMON NORMALS: normocephalic HEAD & SCALP: normocephalic OTHER: 1 cm linear laceration over the occipita l scalp with no active bleeding and well-approximated wound edges. No underlying bony abnormality. No cephalhematoma. No foreign body noted. Eye: COMMON NORMALS: Equal, round and reactive pupils present, EOMs intact bilaterally and no scleral icterus PUPIL: Yes Equal, round and reactive pupils present Neck/C-Spine: OTHER: No obvious traumatic injury of the neck. Decreased range of motion due to an cervical spine hardware but no obvious pain with unchanged range of motion. No midline tenderness. No new paresthesias. Resp: COMMON NORMALS: normal respiratory effort and No retractions Cardio: COMMON NORMALS: regular rate, regular rhythm and No murmurs present (Cardio) RATE: regular rate RHYTHM: regular rhythm GI: COMMON NORMALS: Normal to inspection, nondistended, normoactive bowel sounds present, Soft to palpation and non-tender PALPATION: Yes Soft to palpation Neuro: COMMON NORMALS: patient oriented x3 SENSORIUM/ORIENTATION: Yes alert OTHER: Stable, unchanged numbness of the right hand which was present prior to fall and the indication for neck surgery in the first place. Skin: COMMON NORMALS: no rashes or lesions noted GENERAL SKIN EXAM: no rashes or lesions noted Course 2 Vital Signs: Vital signs: Vital Signs Temperature 98.5 F 11/08/24 17:03 Pulse Rate 65 11/08/24 20:56 Blood Pressure 157/74 11/08/24 20:56 Pulse Oximetry 98 11/08/24 20:56 Oxygen Delivery Me thod Room Air 11/08/24 19:29 MDM - Head Injury Medcial Decision Making In summary, patient is a pleasant 69-year-old female seen for fall. Fortunately, CT head, neck, chest and pelvis showed nothing acute. She has no acute distress and exam is reassuring. I do not suspect intracranial bleed, hardware disruption of the cervical surgical sites, or any other emergent process warranting further workup. I do not suspect syncope or cardiac etiology to the fall. Labs are reassuring. Small laceration to the posterior scalp is well-approximated and only partial-thickness and would not benefit from primary repair. She will be discharged in stable improved condition. Lab Data 11/08/24 19:24 11/08/24 19:24 Radiology Impressions Cervical Spine CT 11/08/24 18:57 IMPRESSION: 1. Postsurgical and multilevel degenerative changes of the cervical spine. No acute bony abnormality. If symptoms persist, consider further evaluation with MRI, if there are no contraindications to obtaining a MRI scan. 2. Bilateral C2 pedicle screws extend along the superior aspect of the bilateral transverse foramina. If there is concern for vertebral artery injury, then recommend further evaluation with CT angiogram. Chest X-Ray 11/08/24 18:57 IMPRESSION: No acute findings. Head CT 11/08/24 18:57 IMPRESSION: No acute intracranial abnormality. If symptoms persist, consider further evaluation with MRI, if there are no contraindications to obtaining a MRI scan. Laboratory Results WBC 8.25 10^3/uL (3.29-11.43) 11/08/24 19:24 RBC 3.84 10^6/uL (3.85-5.65) L 11/08/24 19:24 Hgb 12.20 g/dL (11.27-16.99) 11/08/24 19:24 Hct 36.6 % (36-47) 11/08/24 19:24 MCV 95.3 fl (85-98) 11/08/24 19:24 MCH 31.8 pg (27-33) 11/08/24 19:24 MCHC 33.3 g/dL (30-55) 11/08/24 19:24 RDW 13.2 % (12.1-15.1) 11/08/24 19:24 Plt Count 273 10^3/cmm (157-399) 11/08/24 19:24 MPV 8.7 fL (7.4-10.4) 11/08/24 19:24 Neut % (Auto) 68.9 % 11/08/24 19:24 Lymph % (Auto) 22.1 % 11/08/24 19:24 [place] % (Auto) 7.9 % 11/08/24 19:24 Eos % (Auto) 0.5 % 11/08/24 19:24 Baso % (Auto) 0.4 % 11/08/24 19:24 Neut # (Auto) 5.69 10^3/uL (1.8-7.7) 11/08/24 19:24 Lymph # (Auto) 1.8 10^3/uL (0.8-4.8) 11/08/24 19:24 [place] # (Auto) 0.7 10^3/uL (0.2-0.9) 11/08/24 19:24 Eos # (Auto) 0.0 10^3/uL (0.0-0.8) 11/08/24 19:24 Baso # (Auto) 0.0 10^3/uL (0.0-0.1) 11/08/24 19:24 Nucleated RBC % (auto) 0 % 11/08/24 19:24 Nucleated RBCs # 0.0 /100WBC 11/08/24 19:24 Sodium 140 mmol/L (136-145) 11/08/24 19:24 Potassium 3.6 mmol/L (3.5-5.1) 11/08/24 19:24 Chloride 100 mmol/L (98-107) 11/08/24 19:24 Carbon Dioxide 26 mmol/L (22-29) 11/08/24 19:24 Anion Gap 17.6 (5-19) 11/08/24 19:24 BUN 10 mg/dL (8-23) 11/08/24 19:24 Creatinine 0.6 mg/dL (0.5-0.9) 11/08/24 19:24 GFR Calculation 99.7 mL/min (90-130) 11/08/24 19:24 Glucose 105 mg/dL (65-115) 11/08/24 19:24 Calculated Osmolality 289 mOsm/kg (285-295) 11/08/24 19:24 Calcium 10.2 mg/dL (8.5-10.5) 11/08/24 19:24 Total Bilirubin 0.4 mg/dL (0.15-1.2) 11/08/24 19:24 AST 20 U/L (0-32) 11/08/24 19:24 ALT 14 U/L (0-33) 11/08/24 19:24 Alkaline Phosphatase 95 U/L (35-105) 11/08/24 19:24 Troponin T Baseline 27 ng/L (0-10) H 11/08/24 19:24 Total Protein 7.3 g/dL (6.6-8.7) 11/08/24 19:24 Albumin 5.0 g/dL (3.5-5.2) 11/08/24 19:24 Globulin 2.3 g/dL (1.3-4.6) 11/08/24 19:24 All radiology interpretation(s) finalized by discharge EKG Data EKG 1: Interpretation: Time?1714?sinus rhythm, rate of 83, no ST segment elevation or depression, no T wave inversions, QTc = 376 Discharge Plan Discharge Patient Disposition: Home Clinical Impression: Fall, Laceration of scalp Condition: Stable Prescriptions: No Action hydrochlorothiazide 25 mg tablet 25 mg PO DAILY methocarbamol 500 mg tablet 1,000 mg PO TID hydrocodone-acetaminophen 5-325 mg tablet 1 tab PO Q6H PRN (Reason: Pain) 7 Days Qty: 28 0RF atenolol 25 mg tablet 25 mg PO DAILY nabumetone 500 mg tablet 500 mg PO BID levetiracetam 1,000 mg tablet 2,000 mg PO BID lacosamide 150 mg tablet 150 mg PO BID acetaminophen [Tylenol] 325 mg Tablet 650 mg PO Q6H PRN (Reason: Pain) Discharge Orders: Discharge ED (Routine); Ordered 11/08/24 Ordered By: Sherif Ceja Referrals: Gtz,[place], LEARNING OPERATIONS SPECIALIST [Primary Care Provider, Nurse Practitioner] Discharge Diet: Usual diet Discharge Activity: Increase activity as tolerated Patient Instructions: Scalp Laceration, Patient Portal & Jaime Instructions Activity Restrictions/Additional Instructions: CT scan of the brain, neck, EKG, chest x-ray, blood work are all reassuring with no evidence of emergencies requiring hospitalization or surgery. The laceration on the back of your head should heal without need for intervention. The wound edges are well-approximated. It is safe to gently wash the area with shampoo or soap as you normally would in the shower. Print Language: [place] Coding Level of Care Code ED Bank Compliance Officer for Agustin Peace
[2024-11-08] MEDS: sodium chloride 0.9% 1,000 ML 999 ML IV (19:40)
[2024-11-08] MEDS: tetanus-dipt-pertussis 0.5 mL SDV IM (19:41)
[2024-11-08 19:47] LABS: Troponin(5th) Baseline 27 ng/L (0-10)
[2024-11-08 19:49] LABS: Alanine Aminotransferase 14 U/L (0-33); Alkaline Phosphatase 95 U/L (35-105); Anion Gap 17.6 (5-19); Aspartate Amino Transferase 20 U/L (0-32); Blood Urea Nitrogen 10 mg/dL (8-23); Calcium 10.2 mg/dL (8.5-10.5); Carbon Dioxide 26 mmol/L (22-29); Chloride 100 mmol/L (98-107); Globulin 2.3 g/dL (1.3-4.6); Glomerular Filtration Rate 99.7 mL/min (90-130); Glucose 105 mg/dL (65-115); Osmolality Calculated 289 mOsm/kg (285-295); Potassium 3.6 mmol/L (3.5-5.1); Sodium 140 mmol/L (136-145); Total Bilirubin 0.4 mg/dL (0.15-1.2); Total Protein 7.3 g/dL (6.6-8.7)
[2024-11-08 20:56] VITALS: BP 157/74; PULSE 65; O2SAT 98
== END 2024-11-08 20:58 | disposition home or self-care (01) ==
PROVIDERS: Emergency Provider Student in an Organized Health Care Education/Training Program; PCP Nurse Practitioner Family
DX: S01.01XA Laceration without foreign body of scalp, initial encounter (principal); W19.XXXA Unspecified fall, initial encounter
CPT/HCPCS: 70450; 71045; 72125; 80053; 84484; 85025; 90471; 90715; 93005; 96360; 99285; J7030

== ENCOUNTER → 2025-01-03 10:12 | Outpatient (BNVA) | payer MEDICARE, MEDICAID, SELFPAY | PROVIDERS: PCP Nurse Practitioner Family; Visit Provider Orthopaedic Surgery | DX: Z98.890 Other specified postprocedural states (principal) | CPT/HCPCS: 72040; 99213 ==

== ENCOUNTER 2025-01-09 12:16 | Outpatient (CLI) | payer MEDICARE, MEDICAID, SELFPAY ==
--- NOTE | 2025-01-09 16:00 | MR_ITS ---
WS: [id number] MRI CERVICAL SPINE NONCONTRAST HISTORY: Neck pain, bilateral hand numbness. Prior neck surgeries. COMPARISON: 06/18/2024 Technique: Multiplanar, multisequence noncontrast imaging of the cervical spine. Straightening of the normal cervical lordosis. Reidentified is stable retrolisthesis of C3 on C4 by 3 mm. Anterior cervical disc fusion from C4-T1. There is less disc osteophyte contact on the cervical cord at C2-3 and C3-4 since the prior study. New posterior cervical fusion with laminectomy defect fr om C2-C5. There is very slight increased T2 signal and narrowing of the cervical cord at C2-3. This is the site of cord edema and stenosis noted on the prior study. Craniocervical junction, C1 and C2 relationship, odontoid process and soft tissues are normal. C2-C3: Significant artifact on the axial imaging. Central disc protrusion and osteophytosis. High-grade stenosis has resolved since the prior exam. There is less contact on the cervical cord. There is a large posterior laminectomy defect. C3-C4: Large posterior laminectomy defect with resolution of central stenosis. Central disc osteophyte complex. Foramina poorly visualized due to artifact. No central stenosis. C4-C5: No central stenosis. Posterior laminectomy defect. Foramina are poorly visualized due to artifact. C5-C6: No central stenosis. Moderate RIGHT and mild LEFT foraminal stenosis. C6-C7: No central stenosis. Moderate to severe RIGHT foraminal stenosis and moderate LEFT foraminal stenosis predominately due to osteophytes. C7-T1: Moderate to severe bilateral foraminal stenosis, RIGHT greater than LEFT predominately due to osteophyte disease. T1-2: Facet joint arthritis encroaching upon the posterior thecal sac. Moderate bilateral foraminal stenosis. Paraspinal soft tissue are normal. MR/MR cervical spin wo con* [id number] IMPRESSION: 1. New since the prior CT of 06/18/2024 is posterior fusion hardware extending f rom C2-C5 with laminectomy defects. 2. Interval resolution and improvement of the central cervical stenosis previo usly described at C2-3 and C3-4. 3. Improved stenosis and cord edema at C2-3. There is still a very small amoun t of myelomalacia and mild cord atrophy at the C2-3 level. 4. Multilevel central and bilateral foraminal stenosis predominantly due to os teophytosis and facet disease. Similar to the prior study. 5. Anterior cervical disc fusion from C4-C7 appears intact and stable. 6. Moderate to severe RIGHT foraminal and moderate LEFT foraminal stenosis at C6-7 and bilaterally at C7-T1. 7. Moderate foraminal stenosis at T1-T2. Moderate foraminal stenosis on the RI GHT at C5-6 and on the LEFT is mild.
== END 2025-01-09 12:17 | disposition home or self-care (01) ==
LOC: RAD 12:17
PROVIDERS: PCP Nurse Practitioner Family; Visit Provider Orthopaedic Surgery
DX: M99.61 Osseous and subluxation stenosis of intervertebral foramina of cervical region (principal); M25.78 Osteophyte, vertebrae; M43.22 Fusion of spine, cervical region
CPT/HCPCS: 72141

== ENCOUNTER → 2025-02-19 13:45 | Outpatient (BNVA) | payer MEDICARE, MEDICAID, SELFPAY | PROVIDERS: PCP Nurse Practitioner Family; Referring Provider Orthopaedic Surgery; Visit Provider Specialist | DX: R20.0 Anesthesia of skin (principal); R20.2 Paresthesia of skin | CPT/HCPCS: 95911 ==

== ENCOUNTER → 2025-03-28 13:36 | Outpatient (BNVA) | payer MEDICARE, MEDICAID, SELFPAY | PROVIDERS: PCP Nurse Practitioner Family; Visit Provider Orthopaedic Surgery | DX: G56.01 Carpal tunnel syndrome, right upper limb (principal); G56.21 Lesion of ulnar nerve, right upper limb | CPT/HCPCS: 99214 ==

== ENCOUNTER → 2025-04-08 13:10 | Outpatient (BNVA) | payer MEDICARE, MEDICAID, SELFPAY | PROVIDERS: PCP Nurse Practitioner Family; Visit Provider Nurse Practitioner | DX: G56.01 Carpal tunnel syndrome, right upper limb (principal) | CPT/HCPCS: 73110 ==

== ENCOUNTER 2025-05-06 10:14 | Outpatient (CLI) | payer MEDICARE, MEDICAID, SELFPAY ==
[2025-05-06 11:03] LABS: Hematocrit 39.9 % (36-47); Hemoglobin 13.00 g/dL (11.27-16.99); Mean Corpuscular HGB Conc 32.6 g/dL (30-55); Mean Corpuscular Hemoglobin 32.7 pg (27-33); Mean Corpuscular Volume 100.5 fl (85-98); Nucleated Red Blood Cells % 0 %; Platelet Count 330 10^3/cmm (157-399); Red Blood Count 3.97 10^6/uL (3.85-5.65); White Blood Count 7.24 10^3/uL (3.29-11.43)
[2025-05-06 11:05] LABS: Glucose Urine UA Negative (Normal); Nitrate Urine Negative (Negative); Specific Gravity, Urine 1.008 (1.005-1.030)
[2025-05-06 11:09] LABS: Add Urine Microscopic? YES
[2025-05-06 11:16] LABS: Alanine Aminotransferase 23 U/L (0-33); Albumin Level 5.2 g/dL (3.5-5.2); Alkaline Phosphatase 89 U/L (35-105); Anion Gap 15.9 (5-19); Aspartate Amino Transferase 27 U/L (0-32); Blood Urea Nitrogen 14 mg/dL (8-23); Calcium 10.3 mg/dL (8.5-10.5); Carbon Dioxide 28 mmol/L (22-29); Chloride 101 mmol/L (98-107); Globulin 2.6 g/dL (1.3-4.6); Glucose 105 mg/dL (65-115); Osmolality Calculated 293 mOsm/kg (285-295); Potassium 3.9 mmol/L (3.5-5.1); Sodium 141 mmol/L (136-145); Total Protein 7.8 g/dL (6.6-8.7)
== END 2025-05-06 10:15 | disposition home or self-care (01) ==
LOC: LAB 10:17
PROVIDERS: PCP Nurse Practitioner Family; Visit Provider Nurse Practitioner
DX: Z01.818 Encounter for other preprocedural examination (principal)
CPT/HCPCS: 36415; 80053; 81001; 85025